=== PATIENT | male | born 1940 | race Caucasian/White ===

== ENCOUNTER 2017-06-22 02:32 | Inpatient (IN) | payer MEDICARE, OTHER ==
[~2017-06-22] VITALS: Ht 177.8 cm; Wt 70.0 kg
[2017-06-22] MEDS ORDERED: NITROGLYCERIN 2% 1 GM OINT PKT TD STA (02:39)
[2017-06-22] MEDS ORDERED: FUROSEMIDE 100 MG INJ IV STA (02:39)
[2017-06-22] MEDS ORDERED: ALBUTEROL 0.083% (NEB) 2.5 MG/3 ML AMP HHN ONE (02:59)
[2017-06-22] MEDS ORDERED: IPRATROPIUM (NEB) 0.5 MG/2.5 ML AMP HHN ONE (03:00)
--- NOTE | 2017-06-22 03:24 | RADRPT ---
PROCEDURE: XR Chest. CLINICAL INDICATION: Chest pain. TECHNIQUE: AP Portable chest. COMPARISON: No pertinent prior examinations were submitted for comparison. FINDINGS: Left subclavian AICD device is visualized. The patient is rotated. The cardiac silhouette is within normal limits. The aorta is calcified and tortuous. There are diffu se bilateral reticular densities and left perihilar opacification. No pneumothorax is seen. There is trace right pleural effusion or thickening.. The bones are demineralized. Old right rib fractures. IMPRESSION: Diffuse interstitial lung disease. Left perihilar infiltrate. Atherosclerotic aorta. AICD in place. Physician Pretty Date Time Electronically viewed and signed by Physician Pretty on 06/22/2017 03:23 /
[2017-06-22] MEDS ORDERED: CEFEPIME 1GM/50 ML (PMX) 50 ML IVPB ONE (03:43)
[2017-06-22] MEDS ORDERED: VANCOMYCIN 1 GM (PMX) 250 ML IVPB ONE (03:43)
[2017-06-22] MEDS ORDERED: TAMS0.4C2 PO (05:37)
[2017-06-22] MEDS ORDERED: HYDR25TA6 PO (05:37)
[2017-06-22] MEDS ORDERED: ATOR10TA65 PO (05:37)
[2017-06-22] MEDS ORDERED: CHOL100062 PO (05:37)
[2017-06-22] MEDS ORDERED: OMEP20CA16 PO (05:37)
[2017-06-22] MEDS ORDERED: OLAN2.5T28 PO (05:37)
--- NOTE | 2017-06-22 05:42 | ERD ---
ER Documentation Chief Complaint Chief Complaint SOB x 2 hours HPI This is a 77-year-old male here with complaints of shortness of breath. Brought in by rescue. Placed on CPAP. Given nitro spray. Initial saturations were in the 60s. Her saturations have improved upon arrival. Patient cannot provide any relevant history secondary current breathing status baseline mental status. History per EMS run sheet half-way transfer sheet ROS All systems reviewed and are negative except as per history of present illness. Medications Home Meds Reported Medications Cholecalciferol* (Vitamin D3*) 1,000 Unit Tablet, 1000 UNIT PO DAILY for 30 Days , TAB TAKE 1 TABLET BY MOUTH ONCE DAILY 06/22/17 Tamsulosin Hcl* (Tamsulosin Hcl*) 0.4 Mg Cap.er.24h, 0.4 MG PO DAILY, CAP TAKE 1 CAPSULE BY MOUTH ONCE DAILY 06/22/17 Omeprazole* (Omeprazole*) 20 Mg Capsule.dr, 20 MG PO DAILY, #30 CAP TAKE 1 CAPSULE BY MOUTH ONCE DAILY 06/22/17 Olanzapine* (Zyprexa*) 2.5 Mg Tablet, 2.5 MG PO DAILY, #30 TAB TAKE 1 TABLET BY MOUTH ATR BEDTIME 06/22/17 Hydrochlorothiazide* (Hydrochlorothiazide*) 25 Mg Tab, 25 MG PO QAM, #30 TAB TAKE 1 TABLET BY MOUTH IN THE MORNING 06/22/17 Atorvastatin Calcium (Atorvastatin Calcium) 10 Mg Tablet, 10 MG PO QHS for 30 Days, #30 TAB TAKE 1 TABLET BY MOUTH EVERY EVENING 06/22/17 Allergies Allergies: Coded Allergies: No Known Allergy (Unverified , 06/22/17) PMhx/Soc History of Surgery: No Anesthesia Reaction: No Hx Neurological Disorder: No Hx Respiratory Disorders: Yes (COPD) Hx Cardiac Disorders: Yes (AFib,CHF) Hx Psychiatric Problems: No Hx Miscellaneous Medical Probl: Yes Hx Alcohol Use: Yes (Formerly) Hx Substance Use: No Hx Tobacco Use: Yes (Formerly) Smoking Status: Former smoker Physical Exam Vitals Vital Signs Date Time Temp Pulse Resp B/P Pulse Ox O2 Delivery O2 Flow Rate FiO2 06/22/17 05:00 Simple Mask 10 06/22/17 04:10 78 99 100 06/22/17 02:42 86 99 100 06/22/17 02:40 98.0 87 26 198/171 91 Physical Exam Const: [] Head: Atraumatic Eyes: Normal Conjunctiva ENT: Normal External Ears, Nose and Mouth. Neck: Full range of motion..~ No meningismus. Resp: [place] rales in all lung finnegan Cardio: Regular rate and rhythm, no murmurs Abd: Soft, non tender, non distended. Normal bowel sounds Skin: No petechiae or rashes Back: No midline or flank tenderness Ext: No cyanosis, or edema Neur: Awake and alert Psych: Normal Mood and Affect Result Diagram: 06/22/1732406/22/17 032 Results 24 hrs Laboratory Tests Test 06/22/17 03:25 White Blood Count 13.210^3/ul Red Blood Count 3.7110^6/ul Hemoglobin 11.7g/dl Hematocrit 36.7% Mean Corpuscular Volume 98.9fl Mean Corpuscular Hemoglobin 31.5pg Mean Corpuscular Hemoglobin Concent 31.9g/dl Red Cell Distribution Width 14.2% Platelet Count 60685^3/UL Mean Platelet Volume 11.7fl Neutrophils % 78.5% Lymphocytes % 12.2% Monocytes % 8.2% Eosinophils % 0.1% Basophils % 0.6% Nucleated Red Blood Cells % 0.0/100WBC Neutrophils # 10.310^3/ul Lymphocytes # 1.610^3/ul Monocytes # 1.110^3/ul Eosinophils # 0.010^3/ul Basophils # 0.110^3/ul Nucleated Red Blood Cells # 0.010^3/ul Prothrombin Time 14.6Sec Prothrombin Time Ratio 1.1 INR International Normalized Ratio 1.14 Activated Partial Thromboplast Time 29.6Sec Sodium Level 143mmol/L Potassium Level 3.8mmol/L Chloride Level 96mmol/L Carbon Dioxide Level 35mmol/L Anion Gap 16 Blood Urea Nitrogen 17mg/dl Creatinine 1.05mg/dl Glucose Level 188mg/dl Calcium Level 8.5mg/dl Total Bilirubin 0.2mg/dl Direct Bilirubin 0.00mg/dl Indirect Bilirubin 0.2mg/dl Aspartate Amino Transf (AST/SGOT) 32IU/L Alanine Aminotransferase (ALT/SGPT) 27IU/L Alkaline Phosphatase 125IU/L Troponin I 0.054ng/ml B-Type Natriuretic Peptide 1710PG/ML Total Protein 7.5g/dl Albumin 4.0g/dl Globulin 3.50g/dl Albumin/Globulin Ratio 1.14 Current Medications Medications (Trade) Dose Ordered Sig/Yesenia Route PRN Reason Start Time Stop Time Status Last Admin Dose Admin Nitroglycerin (Nitroglycerin 2% Oint) 1 inch ONCE STAT TD 06/22/17 02:39 06/22/17 02:41 DC 06/22/17 03:21 Furosemide (Lasix) 80 mg ONCE STAT IV 06/22/17 02:39 06/22/17 02:41 DC 06/22/17 03:06 Albuterol (Proventil 0.083% (Neb)) 5 mg ONCE ONCE HHN 06/22/17 02:59 06/22/17 03:33 DC 06/22/17 03:14 Ipratropium [place] 0.5 mg 0.5 mg ONCE ONCE HHN 06/22/17 03:00 06/22/17 03:33 DC 06/22/17 03:13 Cefepime HCl 50 ml @ 100 mls/hr ONCE ONCE IVPB 06/22/17 03:43 06/22/17 04:12 DC 06/22/17 04:38 Vancomycin HCl (Vancocin) 250 ml @ 125 mls/hr ONCE ONCE IVPB 06/22/17 03:43 06/22/17 05:42 06/22/17 04:53 Procedures/MDM EKG: Rate/Rhythm: [Normal Sinus Rhythm] QRS, ST, T-waves: [No changes consistent w/ acute ischemia] Impression: [No evidence of ischemia or arrhythmia] Chest X-ray 1V Interpreted by me: Soft Tissue: No acute abnormalities Bones: No acute abnormalities Mediastinum/Cardiac Silhouette/Lungs: Mild perihilar infiltrate. Increased interstitial fluid working. Medical decision making: This very pleasant patient as well as possible pulmonary edema and possible pneumonia. Started antibiotics post cultures. Given Lasix and trial of BiPAP. Patient greatly improved. Patient will be admitted to Dr. Yang who is on-call for Dr. Patino Critical Care: Time: 45 minutes Treatments/Evaluations: Close monitoring and treatment of unstable vital signs, cardiorespiratory, and neurologic status, while maintaining tight balance of fluid, respiratory, and cardiac interventions. Departure Diagnosis: Primary Impression: Pulmonary edema Chronicity: acute Qualified Code: J81.0 - Acute pulmonary edema Additional Impression: Pneumonia Pneumonia type: due to unspecified organism Laterality: left Lung location : unspecified part of lung Qualified Code: J18.9 - Pneumonia of left lung due to infectious organism, unspecified part of lung Condition: Serious AYANNA COELHO Jun 22, 2017 05:42
[2017-06-22] MEDS ORDERED: ACET325T45 PO ×2 (05:44→06:10)
[2017-06-22] MEDS ORDERED: DOCU100C26 PO (05:44)
[2017-06-22] MEDS ORDERED: ATEN-51 PO (05:44)
[2017-06-22] MEDS ORDERED: AMLO5TAB4 PO (05:44)
[2017-06-22] MEDS ORDERED: CLON-379 PO (05:58)
[2017-06-22] MEDS ORDERED: NIT4 SL (05:58)
[2017-06-22] MEDS ORDERED: ASPI-664 PO (06:10)
[2017-06-22] MEDS ORDERED: UDMYL PO (06:10)
[2017-06-22] MEDS ORDERED: [UNRECOGNIZED DRUG - CODE] PO (06:10)
[2017-06-22] MEDS ORDERED: AMIO200T2 PO (06:10)
[2017-06-22] MEDS ORDERED: MULT-105 PO (06:10)
[2017-06-22] MEDS ORDERED: FOLI-49 PO (06:10)
[2017-06-22] MEDS ORDERED: LORA1TAB PO (06:10)
[2017-06-22] MEDS ORDERED: BENA40TA41 PO (06:13)
[2017-06-22] MEDS ORDERED: DIGO125T19 PO (06:13)
[2017-06-22] MEDS ORDERED: PANT40TA3 PO (06:13)
[2017-06-22] MEDS ORDERED: CARV25TA97 PO (06:19)
[2017-06-22] MEDS ORDERED: ALLO100T PO (06:19)
[2017-06-22] MEDS ORDERED: ALBU2.5V3 NEB (06:29)
[2017-06-22] MEDS ORDERED: FURO20TA3 PO (06:29)
[2017-06-22] MEDS ORDERED: GABA100C14 PO (06:29)
[2017-06-22] MEDS ORDERED: ACET12.5 PO (06:29)
[2017-06-22] MEDS ORDERED: APIX5TAB PO (06:29)
[2017-06-22] MEDS ORDERED: TYL2 PO (06:29)
[2017-06-22] MEDS ORDERED: FUROSEMIDE 40 MG INJ IV ONE (07:00)
[2017-06-22] MEDS ORDERED: ONDANSETRON 4 MG INJ IV PRN (07:00)
[2017-06-22] MEDS ORDERED: HYDROCODONE/APAP (5/325) TAB PO PRN (07:00)
[2017-06-22] MEDS ORDERED: ACETAMINOPHEN 325 MG TAB PO PRN ×2 (07:00→12:30)
[2017-06-22] MEDS ORDERED: NACL 0.9% 3 ML SYG IV SCH (07:00)
[2017-06-22] MEDS: ENOXAPARIN 40 MG/0.4 ML SYG SC SCH (09:04)
[2017-06-22] MEDS: FAMOTIDINE 20 MG INJ IV SCH ×2 (09:04→21:00)
[2017-06-22] MEDS: GABAPENTIN 100 MG CAP PO SCH ×5 (09:16→21:01)
[2017-06-22] MEDS ORDERED: CEFTRIAXONE 1 GM INJ IVPB SCH (10:00)
[2017-06-22] MEDS ORDERED: ASPIRIN 81 MG TAB PO ONE (10:00)
[2017-06-22] MEDS: AZITHROMYCIN 250 MG in SOD CHLORIDE 0.9% 250 ML IVPB SCH ×2 (10:40→10:57)
--- NOTE | 2017-06-22 11:57 | QN ---
Documentation Comment [id number] MARION CONNELL MD Jun 22, 2017 11:57
--- NOTE | 2017-06-22 11:57 | QN ---
Documentation Comment [id number] MARION CONNELL MD Jun 22, 2017 11:57
--- NOTE | 2017-06-22 11:57 | QN ---
Documentation Comment [id number] MARION CONNELL MD Jun 22, 2017 11:57
[2017-06-22] MEDS ORDERED: AL HYDROX/MG HYDROX/SIMETH 30 ML CUP PO PRN (12:30)
[2017-06-22] MEDS ORDERED: LORAZEPAM 1 MG TAB PO PRN (12:30)
[2017-06-22] MEDS ORDERED: NITROGLYCERIN (SL) 0.4 MG TAB SL PRN (12:30)
[2017-06-22] MEDS: ALBUTEROL 0.083% (NEB) 2.5 MG/3 ML AMP NEB SCH ×4 (13:00→21:17)
--- NOTE | 2017-06-22 13:50 | HP ---
DATE OF ADMISSION: 06/22/2017 HISTORY OF PRESENT ILLNESS: The patient with history of CAD, CKD, CHF, diet- controlled diabetes, history of pneumonia, history of alcohol abuse, history of pancreatitis, history of DVT, treated, history of AICD device placement, has history of systolic heart failure, history of poor social condition, is a [place] [facility] resident now, presented to this hospital [facility] the [facility] complaining of short of breath. The patient carries a diagnosis of hypertension , atrial fibrillation, COPD, history of GERD, history of alcohol abuse, history of cannabis abuse in the past. Patient presented with short of breath, was placed on CPAP, patient also received nitroglycerin spray. Blood pressure recorded as 198/171, hematocrit 36.7, WBC 13.2. The patient received nitroglycerin, Lasix, albuterol, Atrovent, cefepime and vancomycin in the ER. The patient had a chest x-ray done that shows diffuse interstitial lung disease with left perihilar infiltrate and is going to be admitted for further management. PAST MEDICAL HISTORY: As mentioned above. Briefly, hypertension, neuropathy, CAD, CKD Patient has CHF, systolic heart failure, AICD device placement, history of pancreatitis, history of DVT in the past, treated, history of cardiac arrhythmia, history of malfunctioning pacemaker wire. The patient also has a history of multiple hospitalizations at various hospitals. ALLERGY HISTORY: NEGATIVE. FAMILY HISTORY: Negative. SOCIAL HISTORY: Marijuana use. MEDICATION HISTORY: The patient is on: 1. Tylenol. 2. Albuterol. 3. Allopurinol. 4. Amiodarone. 5. Apixaban. 6. Aspirin. 7. Benazepril. 8. Coreg. 9. Clonidine. 10. Digoxin. 11. Folic acid. 12. Lasix. 13. Gabapentin. 14. Lorazepam. 15. Simethicone. 16. Multiple vitamin. 17. . 18. Nitroglycerine. 19. Protonix. REVIEW OF SYSTEMS: HEENT: Unremarkable. RESPIRATORY: Shortness of breath, cough. CARDIOVASCULAR: No chest pain, palpitation. ABDOMEN: Dyspepsia. EXTREMITIES: Unremarkable. CENTRAL NERVOUS SYSTEM: Unremarkable. PHYSICAL EXAMINATION: GENERAL: The patient is awake, alert, mildly short of breath. VITAL SIGNS: Pulse 76, blood pressure 120/66. HEAD: Atraumatic, normocephalic. Pupils are equal, reactive, no pallor or conjunctival icterus. NECK: Supple. LUNGS: Rhonchi and rales noted bilaterally. CARDIOVASCULAR: S1, S2 are normal. ABDOMEN: Soft, nontender. Bowel sounds present. No palpable mass. EXTREMITIES: No cyanosis, clubbing. Edema positive of the lower extremities. CENTRAL NERVOUS SYSTEM: The patient is awake, alert, no focal deficit. LABORATORY DATA: WBC 13.2, hematocrit 36.7, platelet count of 258. Sodium 142 , potassium 3.8. BNP 1710. IMPRESSION: 1. The patient has acute hypoxic respiratory failure. 2. Pulmonary edema. 3. Underlying pneumonia. 4. Interstitial lung disease. The patient is on Cordarone. 5. Other diagnoses include: The patient has leukocytosis, anemia, AICD device placement, history of malfunctioning pacemaker wire, history of DVT, history of pancreatitis, history of alcohol abuse. PLAN: At this point is to continue oxygen, bronchodilator, , cardiology consultations, diuretic will be given, 2D echo will be obtained. Orders were done. Dictated By: MARION GARLAND/ELBERT Conf#: [id number] DID#: [id number] MTDD
[2017-06-22 14:44] VITALS: TEMP 98.1
[2017-06-22 15:45] VITALS: Ht 177.8 cm; Wt 70.0 kg
[2017-06-22 15:58] VITALS: BP 152/85; RESP 17
[2017-06-22 16:06] VITALS: PULSE 71
[2017-06-22] MEDS: CEFTRIAXONE 1 GM/50 ML (PMX) 50 ML IVPB SCH (19:51)
[2017-06-22 20:07] VITALS: BP 169/78; RESP 17
--- NOTE | 2017-06-22 20:36 | RADRPT ---
Echocardiogram Report Patient Name: EZ AUSTIN Gender: Male Date: 1940 Study Date: 22-Jun-2017 Needle Straightener: Phong [facility] Location: [facility] Ref. Physician: MARION CONNELL Quality: Adequate Procedures: Transthoracic echocardiogram with complete 2D, M-Mode, and doppler examination. Indications: Congestive Heart Failure. 2D/M Mode Doppler Measurement Value Normal Ranges Measurement Value Normal Ranges LVIDd 2D 7.3 3.5 - 5.6 cm AV Peak Joseph 1.8 m/sec LVIDs 2D 6.1 2.1 - 4.1 cm AV Peak PG 12.0 mmHg FS 2D 16.6 % AI Peak PG 24.0 mmHg LVPWd 2D 1.1 0.6 - 1.1 cm AI Peak Joseph 2.4 m/sec IVSd 2D 1.2 0.6 - 1.1 cm AI PHT 548.0 msec IVS/LVPW 2D 1.1 LVOT Peak Joseph 0.8 m/sec AoR Diam 2D 2.6 2.0 - 3.7 cm LVOT Peak PG 2.0 mmHg LA/Ao 2D 2 0 - 1 MV E Peak Joseph 1.3 m/sec EDV 2D 387.0 cm3 MV Decel Time 127 msec ESV 2D 225.0 cm3 TR Peak Joseph 3.2 m/sec LA Dimen 2D 5.1 2.3 - 4.0 cm TR Peak PG 40.0 mmHg RVSP 48.0 mmHg Findings Left Ventricle: Left ventricular wall thickness upper limits of normal. Severe enlargement of left ventricle cavity. Moderate global left ventricular systolic dysfunction. Ejection fraction is visually estimated at 35 %. Tissue Doppler/Mitral Doppler indices are consistent with impaired relaxation (Stage I diastolic dysfunction). Right Ventricle: Normal right ventricular size. Normal right ventricular systolic function. Pacemaker right heart. Left Atrium: There is moderate enlargement of left atrium. Right Atrium: The right atrium is normal in size. Mitral Valve: Mild mitral leaflet calcification. Mild mitral annular calcification. Mild mitral valve regurgitation. Aortic Valve: Aortic valve not well visualized. Tricuspid Valve: Tricuspid valve not well visualized. Estimated peak PA systolic pressure 48 mmHg. There is mild tricuspid regurgitation. Pulmonic Valve: Pulmonic valve not well visualized. Pericardium: Normal pericardium with no significant pericardial effusion. Aorta: Normal aortic root. IVC: Dilated IVC with respiratory collapse consistent with elevated right atrial pressure. Conclusions 1.Tech difficult quality echo with very limited views. 2.Left ventricular wall thickness upper limits of normal. Severe enlargement of left ventricle cavity. Moderate global left ventricular systolic dysfunction. Ejection fraction is visually estimated at 35 %. Tissue Doppler/Mitral Doppler indices are consistent with impaired relaxation (Stage I diastolic dysfunction). 3.Normal right ventricular size. Normal right ventricular systolic function. Pacemaker right heart. 4.There is moderate enlargement of left atrium. 5.Mild mitral leaflet calcification. Mild mitral annular calcification. Mild mitral valve regurgitation. 6.Tricuspid valve not well visualized. Estimated peak PA systolic pressure 48 mmHg. There is mild tricuspid regurgitation. Electronically Signed By: John Longoria 22-Jun-2017 20:35:00 -0700 Patient Name: EZ AUSTIN Study Date: 22-Jun-2017 [id number]
--- NOTE | 2017-06-22 20:36 | RADRPT ---
Echocardiogram Report Patient Name: EZ AUSTIN Gender: Male Date: 1940 Study Date: 22-Jun-2017 Resource Program Teacher: Phong [facility] Location: [facility] Ref. Physician: MARION CONNELL Quality: Adequate Procedures: Transthoracic echocardiogram with complete 2D, M-Mode, and doppler examination. Indications: Congestive Heart Failure. 2D/M Mode Doppler Measurement Value Normal Ranges Measurement Value Normal Ranges LVIDd 2D 7.3 3.5 - 5.6 cm AV Peak Joseph 1.8 m/sec LVIDs 2D 6.1 2.1 - 4.1 cm AV Peak PG 12.0 mmHg FS 2D 16.6 % AI Peak PG 24.0 mmHg LVPWd 2D 1.1 0.6 - 1.1 cm AI Peak Joseph 2.4 m/sec IVSd 2D 1.2 0.6 - 1.1 cm AI PHT 548.0 msec IVS/LVPW 2D 1.1 LVOT Peak Joseph 0.8 m/sec AoR Diam 2D 2.6 2.0 - 3.7 cm LVOT Peak PG 2.0 mmHg LA/Ao 2D 2 0 - 1 MV E Peak Joseph 1.3 m/sec EDV 2D 387.0 cm3 MV Decel Time 127 msec ESV 2D 225.0 cm3 TR Peak Joseph 3.2 m/sec LA Dimen 2D 5.1 2.3 - 4.0 cm TR Peak PG 40.0 mmHg RVSP 48.0 mmHg Findings Left Ventricle: Left ventricular wall thickness upper limits of normal. Severe enlargement of left ventricle cavity. Moderate global left ventricular systolic dysfunction. Ejection fraction is visually estimated at 35 %. Tissue Doppler/Mitral Doppler indices are consistent with impaired relaxation (Stage I diastolic dysfunction). Right Ventricle: Normal right ventricular size. Normal right ventricular systolic function. Pacemaker right heart. Left Atrium: There is moderate enlargement of left atrium. Right Atrium: The right atrium is normal in size. Mitral Valve: Mild mitral leaflet calcification. Mild mitral annular calcification. Mild mitral valve regurgitation. Aortic Valve: Aortic valve not well visualized. Tricuspid Valve: Tricuspid valve not well visualized. Estimated peak PA systolic pressure 48 mmHg. There is mild tricuspid regurgitation. Pulmonic Valve: Pulmonic valve not well visualized. Pericardium: Normal pericardium with no significant pericardial effusion. Aorta: Normal aortic root. IVC: Dilated IVC with respiratory collapse consistent with elevated right atrial pressure. Conclusions 1.Tech difficult quality echo with very limited views. 2.Left ventricular wall thickness upper limits of normal. Severe enlargement of left ventricle cavity. Moderate global left ventricular systolic dysfunction. Ejection fraction is visually estimated at 35 %. Tissue Doppler/Mitral Doppler indices are consistent with impaired relaxation (Stage I diastolic dysfunction). 3.Normal right ventricular size. Normal right ventricular systolic function. Pacemaker right heart. 4.There is moderate enlargement of left atrium. 5.Mild mitral leaflet calcification. Mild mitral annular calcification. Mild mitral valve regurgitation. 6.Tricuspid valve not well visualized. Estimated peak PA systolic pressure 48 mmHg. There is mild tricuspid regurgitation. Electronically Signed By: John Longoria 22-Jun-2017 20:35:00 -0700 Patient Name: EZ AUSTIN Study Date: 22-Jun-2017 [id number]
--- NOTE | 2017-06-22 20:36 | RADRPT ---
Echocardiogram Report Patient Name: EZ AUSTIN Gender: Male Date: 1940 Study Date: 22-Jun-2017 Translator/Interpreter: Phong [facility] Location: [facility]13 Ref. Physician: MARION CONNELL Quality: Adequate Procedures: Transthoracic echocardiogram with complete 2D, M-Mode, and doppler examination. Indications: Congestive Heart Failure. 2D/M Mode Doppler Measurement Value Normal Ranges Measurement Value Normal Ranges LVIDd 2D 7.3 3.5 - 5.6 cm AV Peak Joseph 1.8 m/sec LVIDs 2D 6.1 2.1 - 4.1 cm AV Peak PG 12.0 mmHg FS 2D 16.6 % AI Peak PG 24.0 mmHg LVPWd 2D 1.1 0.6 - 1.1 cm AI Peak Joseph 2.4 m/sec IVSd 2D 1.2 0.6 - 1.1 cm AI PHT 548.0 msec IVS/LVPW 2D 1.1 LVOT Peak Joseph 0.8 m/sec AoR Diam 2D 2.6 2.0 - 3.7 cm LVOT Peak PG 2.0 mmHg LA/Ao 2D 2 0 - 1 MV E Peak Joseph 1.3 m/sec EDV 2D 387.0 cm3 MV Decel Time 127 msec ESV 2D 225.0 cm3 TR Peak Joseph 3.2 m/sec LA Dimen 2D 5.1 2.3 - 4.0 cm TR Peak PG 40.0 mmHg RVSP 48.0 mmHg Findings Left Ventricle: Left ventricular wall thickness upper limits of normal. Severe enlargement of left ventricle cavity. Moderate global left ventricular systolic dysfunction. Ejection fraction is visually estimated at 35 %. Tissue Doppler/Mitral Doppler indices are consistent with impaired relaxation (Stage I diastolic dysfunction). Right Ventricle: Normal right ventricular size. Normal right ventricular systolic function. Pacemaker right heart. Left Atrium: There is moderate enlargement of left atrium. Right Atrium: The right atrium is normal in size. Mitral Valve: Mild mitral leaflet calcification. Mild mitral annular calcification. Mild mitral valve regurgitation. Aortic Valve: Aortic valve not well visualized. Tricuspid Valve: Tricuspid valve not well visualized. Estimated peak PA systolic pressure 48 mmHg. There is mild tricuspid regurgitation. Pulmonic Valve: Pulmonic valve not well visualized. Pericardium: Normal pericardium with no significant pericardial effusion. Aorta: Normal aortic root. IVC: Dilated IVC with respiratory collapse consistent with elevated right atrial pressure. Conclusions 1.Tech difficult quality echo with very limited views. 2.Left ventricular wall thickness upper limits of normal. Severe enlargement of left ventricle cavity. Moderate global left ventricular systolic dysfunction. Ejection fraction is visually estimated at 35 %. Tissue Doppler/Mitral Doppler indices are consistent with impaired relaxation (Stage I diastolic dysfunction). 3.Normal right ventricular size. Normal right ventricular systolic function. Pacemaker right heart. 4.There is moderate enlargement of left atrium. 5.Mild mitral leaflet calcification. Mild mitral annular calcification. Mild mitral valve regurgitation. 6.Tricuspid valve not well visualized. Estimated peak PA systolic pressure 48 mmHg. There is mild tricuspid regurgitation. Electronically Signed By: John Longoria 22-Jun-2017 20:35:00 -0700 Patient Name: EZ AUSTIN Study Date: 22-Jun-2017 [id number]
--- NOTE | 2017-06-22 20:40 | CONS ---
Date/Time of Note Date/Time of Note DATE: 06/22/17 TIME: 20:32 Assessment/Plan Assessment/Plan Chief Complaint/Hosp Course CHF exacerbation LBBB Hx of CMP Hx of EtOH use HTN SOB The LV lead is malfunctioning Will have [facility] check the device again The pt is scheduled for the LV lead replacement as outpt Will give IV lasix and will cont the meds and follow up He is in a atrial paced rhythm now. 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 The pt will be scheduled fro the LV lead replacement soon. sob and chf exacerbation Respiratory: shortness of breath Cardiovascular: edema Past Medical History see HPI Social History Smoking Status: Former smoker Exam/Review of Systems Vital Signs Vitals Vital Signs Date Time Temp Pulse Resp B/P Pulse Ox O2 Delivery O2 Flow Rate FiO2 06/22/17 20:12 Nasal Cannula 2.0 06/22/17 20:07 98.9 66 17 169/78 91 06/22/17 04:10 100 Intake and Output 06/21/17 06/21/17 06/22/17 15:00 23:00 07:00 Intake Total 150 ml Output Total 500 ml Balance -350 ml Exam Constitutional: alert, oriented, well developed Psych: no complaints Neck: supple Respiratory: diminished breath sounds Cardiovascular: gallop, jugular venous distention (JVD) Gastrointestinal: soft Results Result Diagram: 06/22/17 0325 06/22/17 0325 Results 24 hrs Laboratory Tests Test 06/22/17 03:25 White Blood Count 13.2 H Red Blood Count 3.71 L Hemoglobin 11.7 L Hematocrit 36.7 L Mean Corpuscular Volume 98.9 Mean Corpuscular Hemoglobin 31.5 Mean Corpuscular Hemoglobin Concent 31.9 L Red Cell Distribution Width 14.2 Platelet Count 258 Mean Platelet Volume 11.7 H Neutrophils % 78.5 H Lymphocytes % 12.2 L Monocytes % 8.2 Eosinophils % 0.1 Basophils % 0.6 Nucleated Red Blood Cells % 0.0 Neutrophils # 10.3 H Lymphocytes # 1.6 Monocytes # 1.1 H Eosinophils # 0.0 Basophils # 0.1 Nucleated Red Blood Cells # 0.0 Prothrombin Time 14.6 H Prothrombin Time Ratio 1.1 INR International Normalized Ratio 1.14 Activated Partial Thromboplast Time 29.6 Sodium Level 143 Potassium Level 3.8 Chloride Level 96 L Carbon Dioxide Level 35 H Anion Gap 16 Blood Urea Nitrogen 17 Creatinine 1.05 Glucose Level 188 Calcium Level 8.5 Total Bilirubin 0.2 Direct Bilirubin 0.00 Indirect Bilirubin 0.2 Aspartate Amino Transf (AST/SGOT) 32 Alanine Aminotransferase (ALT/SGPT) 27 Alkaline Phosphatase 125 H Troponin I 0.054 B-Type Natriuretic Peptide 1710 H Total Protein 7.5 Albumin 4.0 Globulin 3.50 H Albumin/Globulin Ratio 1.14 Medications Medications Current Medications Ondansetron HCl (Zofran Inj) 4 mg Q6H PRN IV NAUSEA AND/OR VOMITING; Start 06/22/17 at 07:00 Acetaminophen (Tylenol Tab) 650 mg Q6H PRN PO PAIN LEVEL 1-3 OR FEVER; Start 06/22/17 at 07:00 Acetaminophen/ Hydrocodone Bitart ([place] (5/325)) 1 tab Q6H PRN PO MODERATE PAIN LEVEL 4-6; Start 06/22/17 at 07:00 Morphine Sulfate (morphine) 2 mg Q4H PRN IV SEVERE PAIN LEVEL 7-10; Start 06/22 at 07:00 Docusate Sodium (Colace) 100 mg Q12H PRN PO CONSTIPATION; Start 06/22/17 at 07: 00 Famotidine (Pepcid Iv) 20 mg Q12 IV Last administered on 06/22/17 09:04; Admin Dose 20 MG; Start 06/22/17 at 09:00 Enoxaparin Sodium (Lovenox) 40 mg DAILY SC Last administered on 06/22/17 09:04 ; Admin Dose 40 MG; Start 06/22/17 at 09:00 Gabapentin 200 mg 200 mg TID PO Last administered on 06/22/17 09:16; Admin Dose 200 MG; Start 06/22/17 at 09:00 Ceftriaxone Sodium (Rocephin) 50 ml @ 100 mls/hr Q24H IVPB Last administered on 06/22/17 19:51; Admin Dose 100 MLS/HR; Start 06/22/17 at 12:00 Furosemide (Lasix) 40 mg DAILY IV ; Start 06/23/17 at 09:00 Acetaminophen (Tylenol Tab) 325 mg Q4H PRN PO PAIN AND OR ELEVATED TEMP; Start 06/22/17 at 12:30 Allopurinol (Zyloprim) 100 mg BID PO ; Start 06/22/17 at 21:00 Amiodarone HCl (Cordarone) 200 mg DAILY PO ; Start 06/23/17 at 09:00 Apixaban (Eliquis) 5 mg BID PO ; Start 06/22/17 at 21:00 Aspirin (Halfprin) 81 mg DAILY PO ; Start 06/23/17 at 09:00 Benazepril HCl (Lotensin) 40 mg DAILY PO ; Start 06/23/17 at 09:00 Carvedilol (Coreg) 25 mg BID PO ; Start 06/22/17 at 21:00 Clonidine (Catapres) 0.1 mg Q6 PO Last administered on 06/22/17t 18:24; Admin Dose 0.1 MG; Start 06/22/17 at 18:00 Digoxin (Digoxin) 0.125 mg DAILY PO ; Start 06/23/17 at 09:00 Folic Acid (Folic Acid) 1 mg DAILY PO ; Start 06/23/17 at 09:00 Gabapentin (Neurontin) 200 mg TID PO ; Start 06/22/17 at 13:00 Lorazepam (Ativan) 1 mg HS PRN PO ANXIETY; Start 06/22/17 at 12:30 Niacinamide 500 mg DAILY PO ; Start 06/23/17 at 09:00 Nitroglycerin (Nitroglycerin (Sl Tab) 0.4 Mg) 1 tab [id number] PRN SL CHEST PAIN ; Start 06/22/17 at 12:30 PRECIOUS CHOI MD Jun 22, 2017 20:40
[2017-06-22 20:51] VITALS: PULSE 76
[2017-06-22 20:52] VITALS: PULSE 98
[2017-06-22] MEDS: APIXABAN 5 MG TABLET PO SCH (21:00)
[2017-06-22] MEDS: ALLOPURINOL 100 MG TAB PO SCH (21:01)
[2017-06-22] MEDS: morphine 2 MG INJ IV PRN (21:02)
[2017-06-23] VITALS (11 sets, daily range): BP systolic 122–162; BP diastolic 59–76; PULSE 60–63; RESP 16–20
[2017-06-23] MEDS: PANTOPRAZOLE (EC) 40 MG TAB PO SCH (07:12)
[2017-06-23] MEDS ORDERED: POTASSIUM CHLORIDE (SR) 20 MEQ TAB PO STA ×2 (07:17→20:04)
[2017-06-23] MEDS: ALBUTEROL 0.083% (NEB) 2.5 MG/3 ML AMP NEB SCH ×4 (09:24→20:42)
[2017-06-23] MEDS: FOLIC ACID 1 MG TAB PO SCH (09:45)
[2017-06-23] MEDS: AMIODARONE 200 MG TAB PO SCH (09:45)
[2017-06-23] MEDS: NIACINAMIDE 500 MG PO SCH (09:45)
[2017-06-23] MEDS: ASPIRIN (EC) 81 MG TAB PO SCH (09:46)
[2017-06-23] MEDS: BENAZEPRIL 40 MG TAB PO SCH (09:46)
[2017-06-23] MEDS: DIGOXIN 0.125 MG TAB PO SCH (09:46)
[2017-06-23] MEDS: ALLOPURINOL 100 MG TAB PO SCH ×2 (09:47→21:10)
[2017-06-23] MEDS: APIXABAN 5 MG TABLET PO SCH ×2 (09:47→21:22)
[2017-06-23] MEDS: FAMOTIDINE 20 MG INJ IV SCH (09:48)
[2017-06-23] MEDS: GABAPENTIN 100 MG CAP PO SCH ×3 (09:48→21:11)
[2017-06-23] MEDS: FUROSEMIDE 40 MG INJ IV SCH (09:48)
[2017-06-23] MEDS: ENOXAPARIN 40 MG/0.4 ML SYG SC SCH (09:52)
[2017-06-23] MEDS: CEFTRIAXONE 1 GM/50 ML (PMX) 50 ML IVPB SCH (12:11)
--- NOTE | 2017-06-23 18:44 | PN ---
Date/Time of Note Date/Time of Note DATE: 06/23/17 TIME: 18:42 Assessment/Plan VTE Prophylaxis VTE Prophylaxis Intervention: other Lines/Catheters IV [facility] Saline [facility] Urinary Cath still in place: No Assessment/Plan Chief Complaint/Hosp Course IMPRESSION: 1. The patient has acute hypoxic respiratory failure. 2. Pulmonary edema. 3. Underlying pneumonia. 4. Interstitial lung disease. The patient is on Cordarone. 5. Other diagnoses include: The patient has leukocytosis, anemia, AICD device placement, history of malfunctioning pacemaker wire, history of DVT, history of pancreatitis, history of alcohol abuse. 6 hypokalemia plan antibiotic lasix kcl Problems: Subjective 24 Hr Interval Summary Subjective hx not possible: other (cardiology note seen,sob better) Exam/Review of Systems Vital Signs Vitals Vital Signs Date Time Temp Pulse Resp B/P Pulse Ox O2 Delivery O2 Flow Rate FiO2 06/23/17 16:37 60 06/23/17 15:23 98.1 17 138/67 98 06/23/17 14:09 Nasal Cannula 2.0 06/23/17 01:27 31 Intake and Output 06/22/17 06/22/17 06/23/17 15:00 23:00 07:00 Intake Total 50 ml 500 ml Output Total 1300 ml 700 ml 800 ml Balance -1300 ml -650 ml -300 ml Exam Neck: supple Respiratory: diminished breath sounds Cardiovascular: regular rate and rhythm Gastrointestinal: bowel sounds (+), soft Musculoskeletal: nl extremities to inspection Extremities: edema (+) Results Result Diagram: 06/23/17 0450 06/23/17 0450 Results 24 hrs Laboratory Tests Test 06/23/17 04:50 White Blood Count 9.7 # Red Blood Count 3.15 L Hemoglobin 9.7 L Hematocrit 30.7 L Mean Corpuscular Volume 97.5 Mean Corpuscular Hemoglobin 30.8 Mean Corpuscular Hemoglobin Concent 31.6 L Red Cell Distribution Width 14.2 Platelet Count 219 Mean Platelet Volume 11.3 H Neutrophils % 66.8 Lymphocytes % 20.1 Monocytes % 12.0 H Eosinophils % 0.0 Basophils % 0.6 Nucleated Red Blood Cells % 0.0 Neutrophils # 6.5 Lymphocytes # 2.0 Monocytes # 1.2 H Eosinophils # 0.0 Basophils # 0.1 Nucleated Red Blood Cells # 0.0 Sodium Level 142 Potassium Level 2.8 *L Chloride Level 94 L Carbon Dioxide Level 39 H Anion Gap 12 Blood Urea Nitrogen 16 Creatinine 0.80 Glucose Level 82 # Calcium Level 8.1 L Total Bilirubin 0.3 Direct Bilirubin 0.00 Indirect Bilirubin 0.3 Aspartate Amino Transf (AST/SGOT) 22 Alanine Aminotransferase (ALT/SGPT) 26 Alkaline Phosphatase 79 Total Protein 6.4 # Albumin 3.2 L Globulin 3.20 Albumin/Globulin Ratio 1.00 Medications Medications Current Medications Ondansetron HCl (Zofran Inj) 4 mg Q6H PRN IV NAUSEA AND/OR VOMITING; Start 06/22/17 at 07:00 Acetaminophen (Tylenol Tab) 650 mg Q6H PRN PO PAIN LEVEL 1-3 OR FEVER; Start 06/22/17 at 07:00 Acetaminophen/ Hydrocodone Bitart ([place] (5/325)) 1 tab Q6H PRN PO MODERATE PAIN LEVEL 4-6; Start 06/22/17 at 07:00 Morphine Sulfate (morphine) 2 mg Q4H PRN IV SEVERE PAIN LEVEL 7-10 Last administered on 06/22/17 21:02; Admin Dose 2 MG; Start 06/22/17 at 07:00 Docusate Sodium (Colace) 100 mg Q12H PRN PO CONSTIPATION; Start 06/22/17 at 07: 00 Enoxaparin Sodium (Lovenox) 40 mg DAILY SC Last administered on 06/23/17 09:52 ; Admin Dose 40 MG; Start 06/22/17 at 09:00 Gabapentin 200 mg 200 mg TID PO Last administered on 06/23/17 14:06; Admin Dose 200 MG; Start 06/22/17 at 09:00 Ceftriaxone Sodium (Rocephin) 50 ml @ 100 mls/hr Q24H IVPB Last administered on 06/23/17 12:11; Admin Dose 100 MLS/HR; Start 06/22/17 at 12:00 Furosemide (Lasix) 40 mg DAILY IV Last administered on 06/23/17 09:48; Admin Dose 40 MG; Start 06/23/17 at 09:00 Acetaminophen (Tylenol Tab) 325 mg Q4H PRN PO PAIN AND OR ELEVATED TEMP; Start 06/22/17 at 12:30 Allopurinol (Zyloprim) 100 mg BID PO Last administered on 06/23/17 09:47; Admin Dose 100 MG; Start 06/22/17 at 21:00 Amiodarone HCl (Cordarone) 200 mg DAILY PO Last administered on 06/23/17 09:45 ; Admin Dose 200 MG; Start 06/23/17 at 09:00 Apixaban (Eliquis) 5 mg BID PO Last administered on 06/23/17 09:47; Admin Dose 5 MG; Start 06/22/17 at 21:00 Aspirin (Halfprin) 81 mg DAILY PO Last administered on 06/23/17 09:46; Admin Dose 81 MG; Start 06/23/17 at 09:00 Benazepril HCl (Lotensin) 40 mg DAILY PO Last administered on 06/23/17 09:46; Admin Dose 40 MG; Start 06/23/17 at 09:00 Carvedilol (Coreg) 25 mg BID PO Last administered on 06/23/17 09:46; Admin Dose 25 MG; Start 06/22/17 at 21:00 Clonidine (Catapres) 0.1 mg Q6 PO Last administered on 06/23/17 12:14; Admin Dose 0.1 MG; Start 06/22/17 at 18:00 Digoxin (Digoxin) 0.125 mg DAILY PO Last administered on 06/23/17 09:46; Admin Dose 0.125 MG; Start 06/23/17 at 09:00 Folic Acid (Folic Acid) 1 mg DAILY PO Last administered on 06/23/17 09:45; Admin Dose 1 MG; Start 06/23/17 at 09:00 Lorazepam (Ativan) 1 mg HS PRN PO ANXIETY; Start 06/22/17 at 12:30 Niacinamide 500 mg DAILY PO Last administered on 06/23/17 09:45; Admin Dose 500 MG; Start 06/23/17 at 09:00 Nitroglycerin (Nitroglycerin (Sl Tab) 0.4 Mg) 1 tab [id number] PRN SL CHEST PAIN ; Start 06/22/17 at 12:30 Famotidine (Pepcid) 20 mg Q12 PO ; Start 06/23/17 at 21:00 MARION CONNELL MD Jun 23, 2017 18:44
--- NOTE | 2017-06-23 20:07 | CONS ---
Date/Time of Note Date/Time of Note DATE: 06/23/17 TIME: 20:06 Assessment/Plan Assessment/Plan Chief Complaint/Hosp Course CHF exacerbation LBBB Hx of CMP Hx of EtOH use HTN SOB The LV lead is malfunctioning Will have [facility] check the device again The pt is scheduled for the LV lead replacement as outpt Will give IV lasix and will cont the meds and follow up He is in a atrial paced rhythm now. 06/23/2017 the pt is seen and examined he is feeling much better he is constipated, and he received laxatives, but still has not used the toilet. Will need fleet enema Problems: Additional Assessment/Plan see above Consultation Date/Type/Reason Admit Date/Time Jun 22, 2017 at 05:30 Initial Consult Date yesterday Referring Provider: MARION CONNELL MD 24 HR Interval Summary Free Text/Dictation The pt is feeling much better Exam/Review of Systems Vital Signs Vitals Vital Signs Date Time Temp Pulse Resp B/P Pulse Ox O2 Delivery O2 Flow Rate FiO2 06/23/17 16:37 60 06/23/17 15:23 98.1 17 138/67 98 06/23/17 14:09 Nasal Cannula 2.0 06/23/17 01:27 31 Intake and Output 06/22/17 06/22/17 06/23/17 15:00 23:00 07:00 Intake Total 50 ml 500 ml Output Total 1300 ml 700 ml 800 ml Balance -1300 ml -650 ml -300 ml Results Result Diagram: 06/23/17 0450 06/23/17 0450 Results 24 hrs Laboratory Tests Test 06/23/17 04:50 White Blood Count 9.7 # Red Blood Count 3.15 L Hemoglobin 9.7 L Hematocrit 30.7 L Mean Corpuscular Volume 97.5 Mean Corpuscular Hemoglobin 30.8 Mean Corpuscular Hemoglobin Concent 31.6 L Red Cell Distribution Width 14.2 Platelet Count 219 Mean Platelet Volume 11.3 H Neutrophils % 66.8 Lymphocytes % 20.1 Monocytes % 12.0 H Eosinophils % 0.0 Basophils % 0.6 Nucleated Red Blood Cells % 0.0 Neutrophils # 6.5 Lymphocytes # 2.0 Monocytes # 1.2 H Eosinophils # 0.0 Basophils # 0.1 Nucleated Red Blood Cells # 0.0 Sodium Level 142 Potassium Level 2.8 *L Chloride Level 94 L Carbon Dioxide Level 39 H Anion Gap 12 Blood Urea Nitrogen 16 Creatinine 0.80 Glucose Level 82 # Calcium Level 8.1 L Total Bilirubin 0.3 Direct Bilirubin 0.00 Indirect Bilirubin 0.3 Aspartate Amino Transf (AST/SGOT) 22 Alanine Aminotransferase (ALT/SGPT) 26 Alkaline Phosphatase 79 Total Protein 6.4 # Albumin 3.2 L Globulin 3.20 Albumin/Globulin Ratio 1.00 Medications Medications Current Medications Ondansetron HCl (Zofran Inj) 4 mg Q6H PRN IV NAUSEA AND/OR VOMITING; Start 06/22/17 at 07:00 Acetaminophen (Tylenol Tab) 650 mg Q6H PRN PO PAIN LEVEL 1-3 OR FEVER; Start 06/22/17 at 07:00 Acetaminophen/ Hydrocodone Bitart ([place] (5/325)) 1 tab Q6H PRN PO MODERATE PAIN LEVEL 4-6; Start 06/22/17 at 07:00 Morphine Sulfate (morphine) 2 mg Q4H PRN IV SEVERE PAIN LEVEL 7-10 Last administered on 06/22/17 21:02; Admin Dose 2 MG; Start 06/22/17 at 07:00 Docusate Sodium (Colace) 100 mg Q12H PRN PO CONSTIPATION; Start 06/22/17 at 07: 00 Enoxaparin Sodium (Lovenox) 40 mg DAILY SC Last administered on 06/23/17 09:52 ; Admin Dose 40 MG; Start 06/22/17 at 09:00 Gabapentin 200 mg 200 mg TID PO Last administered on 06/23/17 14:06; Admin Dose 200 MG; Start 06/22/17 at 09:00 Ceftriaxone Sodium (Rocephin) 50 ml @ 100 mls/hr Q24H IVPB Last administered on 06/23/17 12:11; Admin Dose 100 MLS/HR; Start 06/22/17 at 12:00 Furosemide (Lasix) 40 mg DAILY IV Last administered on 06/23/17 09:48; Admin Dose 40 MG; Start 06/23/17 at 09:00 Acetaminophen (Tylenol Tab) 325 mg Q4H PRN PO PAIN AND OR ELEVATED TEMP; Start 06/22/17 at 12:30 Allopurinol (Zyloprim) 100 mg BID PO Last administered on 06/23/17 09:47; Admin Dose 100 MG; Start 06/22/17 at 21:00 Amiodarone HCl (Cordarone) 200 mg DAILY PO Last administered on 06/23/17 09:45 ; Admin Dose 200 MG; Start 06/23/17 at 09:00 Apixaban (Eliquis) 5 mg BID PO Last administered on 06/23/17 09:47; Admin Dose 5 MG; Start 06/22/17 at 21:00 Aspirin (Halfprin) 81 mg DAILY PO Last administered on 06/23/17 09:46; Admin Dose 81 MG; Start 06/23/17 at 09:00 Benazepril HCl (Lotensin) 40 mg DAILY PO Last administered on 06/23/17 09:46; Admin Dose 40 MG; Start 06/23/17 at 09:00 Carvedilol (Coreg) 25 mg BID PO Last administered on 06/23/17 09:46; Admin Dose 25 MG; Start 06/22/17 at 21:00 Clonidine (Catapres) 0.1 mg Q6 PO Last administered on 06/23/17 18:00; Admin Dose 0.1 MG; Start 06/22/17 at 18:00 Digoxin (Digoxin) 0.125 mg DAILY PO Last administered on 06/23/17 09:46; Admin Dose 0.125 MG; Start 06/23/17 at 09:00 Folic Acid (Folic Acid) 1 mg DAILY PO Last administered on 06/23/17 09:45; Admin Dose 1 MG; Start 06/23/17 at 09:00 Lorazepam (Ativan) 1 mg HS PRN PO ANXIETY; Start 06/22/17 at 12:30 Niacinamide 500 mg DAILY PO Last administered on 06/23/17 09:45; Admin Dose 500 MG; Start 06/23/17 at 09:00 Nitroglycerin (Nitroglycerin (Sl Tab) 0.4 Mg) 1 tab [id number] PRN SL CHEST PAIN ; Start 06/22/17 at 12:30 Famotidine (Pepcid) 20 mg Q12 PO ; Start 06/23/17 at 21:00 PRECIOUS CHOI MD Jun 23, 2017 20:07
[2017-06-23] MEDS: FAMOTIDINE 20 MG TAB PO SCH (21:23)
[2017-06-24] VITALS (13 sets, daily range): BP systolic 137–161; BP diastolic 63–78; PULSE 59–60; RESP 16–22
[2017-06-24] MEDS: PANTOPRAZOLE (EC) 40 MG TAB PO SCH (06:06)
[2017-06-24] MEDS: DOCUSATE SODIUM 100 MG CAP PO PRN (06:09)
[2017-06-24] MEDS: ALBUTEROL 0.083% (NEB) 2.5 MG/3 ML AMP NEB SCH ×4 (07:54→20:58)
[2017-06-24] MEDS: ASPIRIN (EC) 81 MG TAB PO SCH (09:41)
[2017-06-24] MEDS: FOLIC ACID 1 MG TAB PO SCH (09:41)
[2017-06-24] MEDS: BENAZEPRIL 40 MG TAB PO SCH (09:42)
[2017-06-24] MEDS: AMIODARONE 200 MG TAB PO SCH (09:42)
[2017-06-24] MEDS: GABAPENTIN 100 MG CAP PO SCH ×3 (09:42→21:26)
[2017-06-24] MEDS: DIGOXIN 0.125 MG TAB PO SCH (09:43)
[2017-06-24] MEDS: ALLOPURINOL 100 MG TAB PO SCH ×2 (09:43→21:26)
[2017-06-24] MEDS: FAMOTIDINE 20 MG TAB PO SCH ×2 (09:43→21:26)
[2017-06-24] MEDS: APIXABAN 5 MG TABLET PO SCH ×2 (09:43→21:25)
[2017-06-24] MEDS: NIACINAMIDE 500 MG PO SCH (09:44)
[2017-06-24] MEDS: ENOXAPARIN 40 MG/0.4 ML SYG SC SCH (10:07)
[2017-06-24] MEDS: POTASSIUM CHLORIDE (SR) 20 MEQ TAB PO SCH (14:20)
[2017-06-24] MEDS: CEFTRIAXONE 1 GM/50 ML (PMX) 50 ML IVPB SCH (14:20)
[2017-06-24] MEDS: FUROSEMIDE 40 MG INJ IV SCH (14:20)
--- NOTE | 2017-06-24 16:47 | PN ---
Date/Time of Note Date/Time of Note DATE: 06/24/17 TIME: 16:46 Assessment/Plan VTE Prophylaxis VTE Prophylaxis Intervention: other Lines/Catheters [facility] Sal[facility] Lock Urinary Cath still in place: No Assessment/Plan Chief Complaint/Hosp Course IMPRESSION: 1. The patient has acute hypoxic respiratory failure. 2. Pulmonary edema. 3. Underlying pneumonia. 4. Interstitial lung disease. The patient is on Cordarone. 5. Other diagnoses include: The patient has leukocytosis, anemia, AICD device placement, history of malfunctioning pacemaker wire, history of DVT, history of pancreatitis, history of alcohol abuse. 6 hypokalemia plan antibiotic lasix kcl per cardio Problems: Subjective 24 Hr Interval Summary Respiratory: shortness of breath (better) Exam/Review of Systems Vital Signs Vitals Vital Signs Date Time Temp Pulse Resp B/P Pulse Ox O2 Delivery O2 Flow Rate FiO2 06/24/17 16:04 68 22 95 Nasal Cannula 2.0 06/24/17 16:02 98.0 137/75 06/24/17 02:56 27 Intake and Output 06/23/17 06/23/17 06/24/17 15:00 23:00 07:00 Intake Total 50 ml 600 ml Output Total 850 ml Balance 50 ml -250 ml Exam Cardiovascular: regular rate and rhythm Gastrointestinal: soft Musculoskeletal: nl extremities to inspection Extremities: normal pulses Results Result Diagram: 06/23/17 0450 06/24/17 0926 Results 24 hrs Laboratory Tests Test 06/24/17 09:26 Sodium Level 141 Potassium Level 3.3 L Chloride Level 95 L Carbon Dioxide Level 37 H Anion Gap 12 Blood Urea Nitrogen 14 Creatinine 0.82 Glucose Level 147 # Calcium Level 8.4 Total Bilirubin 0.3 Direct Bilirubin 0.00 Indirect Bilirubin 0.3 Aspartate Amino Transf (AST/SGOT) 26 Alanine Aminotransferase (ALT/SGPT) 25 Alkaline Phosphatase 80 Total Protein 6.9 Albumin 3.4 Globulin 3.50 H Albumin/Globulin Ratio 0.97 Medications Medications Current Medications Ondansetron HCl (Zofran Inj) 4 mg Q6H PRN IV NAUSEA AND/OR VOMITING; Start 06/22/17 at 07:00 Acetaminophen (Tylenol Tab) 650 mg Q6H PRN PO PAIN LEVEL 1-3 OR FEVER; Start 06/22/17 at 07:00 Acetaminophen/ Hydrocodone Bitart ([place] (5/325)) 1 tab Q6H PRN PO MODERATE PAIN LEVEL 4-6; Start 06/22/17 at 07:00 Morphine Sulfate (morphine) 2 mg Q4H PRN IV SEVERE PAIN LEVEL 7-10 Last administered on 06/22/17 21:02; Admin Dose 2 MG; Start 06/22/17 at 07:00 Docusate Sodium (Colace) 100 mg Q12H PRN PO CONSTIPATION Last administered on 06/24/17 06:09; Admin Dose 100 MG; Start 06/22/17 at 07:00 Enoxaparin Sodium (Lovenox) 40 mg DAILY SC Last administered on 06/24/17 10:07 ; Admin Dose 40 MG; Start 06/22/17 at 09:00 Gabapentin 200 mg 200 mg TID PO Last administered on 06/24/17 14:21; Admin Dose 200 MG; Start 06/22/17 at 09:00 Ceftriaxone Sodium (Rocephin) 50 ml @ 100 mls/hr Q24H IVPB Last administered on 06/24/17 14:20; Admin Dose 100 MLS/HR; Start 06/22/17 at 12:00 Furosemide (Lasix) 40 mg DAILY IV Last administered on 06/24/17 14:20; Admin Dose 40 MG; Start 06/23/17 at 09:00 Acetaminophen (Tylenol Tab) 325 mg Q4H PRN PO PAIN AND OR ELEVATED TEMP; Start 06/22/17 at 12:30 Allopurinol (Zyloprim) 100 mg BID PO Last administered on 06/24/17 09:43; Admin Dose 100 MG; Start 06/22/17 at 21:00 Amiodarone HCl (Cordarone) 200 mg DAILY PO Last administered on 06/24/17 09:42 ; Admin Dose 200 MG; Start 06/23/17 at 09:00 Apixaban (Eliquis) 5 mg BID PO Last administered on 06/24/17 09:43; Admin Dose 5 MG; Start 06/22/17 at 21:00 Aspirin (Halfprin) 81 mg DAILY PO Last administered on 06/24/17 09:41; Admin Dose 81 MG; Start 06/23/17 at 09:00 Benazepril HCl (Lotensin) 40 mg DAILY PO Last administered on 06/24/17 09:42; Admin Dose 40 MG; Start 06/23/17 at 09:00 Carvedilol (Coreg) 25 mg BID PO Last administered on 06/24/17 09:41; Admin Dose 25 MG; Start 06/22/17 at 21:00 Clonidine (Catapres) 0.1 mg Q6 PO Last administered on 06/24/17 14:20; Admin Dose 0.1 MG; Start 06/22/17 at 18:00 Digoxin (Digoxin) 0.125 mg DAILY PO Last administered on 06/24/17 09:43; Admin Dose 0.125 MG; Start 06/23/17 at 09:00 Folic Acid (Folic Acid) 1 mg DAILY PO Last administered on 06/24/17 09:41; Admin Dose 1 MG; Start 06/23/17 at 09:00 Lorazepam (Ativan) 1 mg HS PRN PO ANXIETY; Start 06/22/17 at 12:30 Niacinamide 500 mg DAILY PO Last administered on 06/24/17 09:44; Admin Dose 500 MG; Start 06/23/17 at 09:00 Nitroglycerin (Nitroglycerin (Sl Tab) 0.4 Mg) 1 tab [id number] PRN SL CHEST PAIN ; Start 06/22/17 at 12:30 Famotidine (Pepcid) 20 mg Q12 PO Last administered on 06/24/17 09:43; Admin Dose 20 MG; Start 06/23/17 at 21:00 Potassium Chloride (Klor-Con 20) 20 meq DAILY PO Last administered on 14:20; Admin Dose 20 MEQ; Start 06/24/17 at 13:30 MARION CONNELL MD Jun 24, 2017 16:47
[2017-06-25] VITALS (11 sets, daily range): BP systolic 122–168; BP diastolic 60–79; PULSE 60; RESP 19–20
[2017-06-25] MEDS: PANTOPRAZOLE (EC) 40 MG TAB PO SCH (06:02)
[2017-06-25] MEDS: ALBUTEROL 0.083% (NEB) 2.5 MG/3 ML AMP NEB SCH ×2 (07:48→20:42)
[2017-06-25] MEDS: NIACINAMIDE 500 MG PO SCH (09:00)
[2017-06-25] MEDS: ASPIRIN (EC) 81 MG TAB PO SCH (10:31)
[2017-06-25] MEDS: FOLIC ACID 1 MG TAB PO SCH (10:31)
[2017-06-25] MEDS: GABAPENTIN 100 MG CAP PO SCH ×3 (10:33→20:02)
[2017-06-25] MEDS: ALLOPURINOL 100 MG TAB PO SCH ×2 (10:34→20:02)
[2017-06-25] MEDS: FAMOTIDINE 20 MG TAB PO SCH ×2 (10:34→20:02)
[2017-06-25] MEDS: BENAZEPRIL 40 MG TAB PO SCH (10:34)
[2017-06-25] MEDS: POTASSIUM CHLORIDE (SR) 20 MEQ TAB PO SCH (10:35)
[2017-06-25] MEDS: AMIODARONE 200 MG TAB PO SCH (10:36)
[2017-06-25] MEDS: FUROSEMIDE 40 MG INJ IV SCH (10:36)
[2017-06-25] MEDS: APIXABAN 5 MG TABLET PO SCH ×2 (10:38→20:02)
[2017-06-25] MEDS: DIGOXIN 0.125 MG TAB PO SCH (10:38)
[2017-06-25] MEDS: ENOXAPARIN 40 MG/0.4 ML SYG SC SCH (10:50)
[2017-06-25] MEDS: CEFTRIAXONE 1 GM/50 ML (PMX) 50 ML IVPB SCH (13:32)
--- NOTE | 2017-06-25 14:25 | PN ---
Date/Time of Note Date/Time of Note DATE: 06/25/17 TIME: 14:22 Assessment/Plan VTE Prophylaxis VTE Prophylaxis Intervention: ambulation Lines/Catheters IV Catheter Type (from [facility]rs): Saline Lock Urinary Cath still in place: No Assessment/Plan Chief Complaint/Hosp Course 1.Acute hypoxic respiratory failure. 2. Pulmonary edema. 3. Underlying pneumonia. 4. Interstitial lung disease. The patient is on Cordarone. 5. Leukocytosis, 6. anemia, 7. AICD device placement, 8. history of malfunctioning pacemaker wire, 9. history of DVT, 10. history of pancreatitis, 11. history of alcohol abuse. Problems: Assessment/Plan 1.Continue antibiotic 2. continue diuresis with lasix 3. Per cardiology Subjective 24 Hr Interval Summary Constitutional: improved, no complaints Exam/Review of Systems Vital Signs Vitals Vital Signs Date Time Temp Pulse Resp B/P Pulse Ox O2 Delivery O2 Flow Rate FiO2 06/25/17 13:28 97 2.0 06/25/17 13:27 60 20 Nasal Cannula 06/25/17 11:46 98.6 122/60 06/25/17 05:25 27 Intake and Output 06/24/17 06/24/17 06/25/17 15:00 23:00 07:00 Intake Total 850 ml 800 ml 600 ml Output Total 1000 ml 2500 ml 1100 ml Balance -150 ml -1700 ml -500 ml Exam Constitutional: alert, oriented Cardiovascular: regular rate and rhythm Gastrointestinal: soft Musculoskeletal: swelling Results Result Diagram: 06/23/17 0450 06/24/17 09 Medications Medications Current Medications Ondansetron HCl (Zofran Inj) 4 mg Q6H PRN IV NAUSEA AND/OR VOMITING; Start 06/22/17 at 07:00 Acetaminophen (Tylenol Tab) 650 mg Q6H PRN PO PAIN LEVEL 1-3 OR FEVER; Start 06/22/17 at 07:00 Acetaminophen/ Hydrocodone Bitart ([place] (5/325)) 1 tab Q6H PRN PO MODERATE PAIN LEVEL 4-6; Start 06/22/17 at 07:00 Morphine Sulfate (morphine) 2 mg Q4H PRN IV SEVERE PAIN LEVEL 7-10 Last administered on 06/22/17t 21:02; Admin Dose 2 MG; Start 06/22/17 at 07:00 Docusate Sodium (Colace) 100 mg Q12H PRN PO CONSTIPATION Last administered on 06/24/17 06:09; Admin Dose 100 MG; Start 06/22/17 at 07:00 Enoxaparin Sodium (Lovenox) 40 mg DAILY SC Last administered on 06/25/17 10:50 ; Admin Dose 40 MG; Start 06/22/17 at 09:00 Gabapentin 200 mg 200 mg TID PO Last administered on 06/25/17 13:33; Admin Dose 200 MG; Start 06/22/17 at 09:00 Ceftriaxone Sodium (Rocephin) 50 ml @ 100 mls/hr Q24H IVPB Last administered on 06/25/17 13:32; Admin Dose 100 MLS/HR; Start 06/22/17 at 12:00 Furosemide (Lasix) 40 mg DAILY IV Last administered on 06/25/17 10:36; Admin Dose 40 MG; Start 06/23/17 at 09:00 Acetaminophen (Tylenol Tab) 325 mg Q4H PRN PO PAIN AND OR ELEVATED TEMP; Start 06/22/17 at 12:30 Allopurinol (Zyloprim) 100 mg BID PO Last administered on 06/25/17 10:34; Admin Dose 100 MG; Start 06/22/17 at 21:00 Amiodarone HCl (Cordarone) 200 mg DAILY PO Last administered on 06/25/17 10:36 ; Admin Dose 200 MG; Start 06/23/17 at 09:00 Apixaban (Eliquis) 5 mg BID PO Last administered on 06/25/17 10:38; Admin Dose 5 MG; Start 06/22/17 at 21:00 Aspirin (Halfprin) 81 mg DAILY PO Last administered on 06/25/17 10:31; Admin Dose 81 MG; Start 06/23/17 at 09:00 Benazepril HCl (Lotensin) 40 mg DAILY PO Last administered on 06/25/17 10:34; Admin Dose 40 MG; Start 06/23/17 at 09:00 Carvedilol (Coreg) 25 mg BID PO Last administered on 06/25/17 10:35; Admin Dose 25 MG; Start 06/22/17 at 21:00 Clonidine (Catapres) 0.1 mg Q6 PO Last administered on 06/25/17 13:34; Admin Dose 0.1 MG; Start 06/22/17 at 18:00 Digoxin (Digoxin) 0.125 mg DAILY PO Last administered on 06/25/17 10:38; Admin Dose 0.125 MG; Start 06/23/17 at 09:00 Folic Acid (Folic Acid) 1 mg DAILY PO Last administered on 06/25/17 10:31; Admin Dose 1 MG; Start 06/23/17 at 09:00 Lorazepam (Ativan) 1 mg HS PRN PO ANXIETY; Start 06/22/17 at 12:30 Niacinamide 500 mg DAILY PO Last administered on 06/25/17 09:00; Admin Dose 500 MG; Start 06/23/17 at 09:00 Nitroglycerin (Nitroglycerin (Sl Tab) 0.4 Mg) 1 tab [id number] PRN SL CHEST PAIN ; Start 06/22/17 at 12:30 Famotidine (Pepcid) 20 mg Q12 PO Last administered on 06/25/17 10:34; Admin Dose 20 MG; Start 06/23/17 at 21:00 Potassium Chloride (Klor-Con 20) 20 meq DAILY PO Last administered on 10:35; Admin Dose 20 MEQ; Start 06/24/17 at 13:30 FRANK BRIAN Jun 25, 2017 14:25
[2017-06-26] VITALS (11 sets, daily range): BP systolic 127–164; BP diastolic 60–76; PULSE 60; RESP 19–21
[2017-06-26] MEDS: morphine 2 MG INJ IV PRN (06:03)
[2017-06-26] MEDS: PANTOPRAZOLE (EC) 40 MG TAB PO SCH (06:29)
[2017-06-26] MEDS: ALBUTEROL 0.083% (NEB) 2.5 MG/3 ML AMP NEB SCH ×3 (07:50→20:33)
[2017-06-26] MEDS: FAMOTIDINE 20 MG TAB PO SCH ×2 (09:09→20:43)
[2017-06-26] MEDS: GABAPENTIN 100 MG CAP PO SCH ×3 (09:09→20:43)
[2017-06-26] MEDS: POTASSIUM CHLORIDE (SR) 20 MEQ TAB PO SCH (09:09)
[2017-06-26] MEDS: NIACINAMIDE 500 MG PO SCH (09:09)
[2017-06-26] MEDS: ASPIRIN (EC) 81 MG TAB PO SCH (09:09)
[2017-06-26] MEDS: FOLIC ACID 1 MG TAB PO SCH (09:09)
[2017-06-26] MEDS: ALLOPURINOL 100 MG TAB PO SCH ×2 (09:09→20:44)
[2017-06-26] MEDS: APIXABAN 5 MG TABLET PO SCH ×2 (09:09→20:43)
[2017-06-26] MEDS: BENAZEPRIL 40 MG TAB PO SCH (09:10)
[2017-06-26] MEDS: FUROSEMIDE 40 MG INJ IV SCH (09:10)
[2017-06-26] MEDS: AMIODARONE 200 MG TAB PO SCH (09:11)
[2017-06-26] MEDS: DIGOXIN 0.125 MG TAB PO SCH (09:12)
[2017-06-26] MEDS: ENOXAPARIN 40 MG/0.4 ML SYG SC SCH (09:52)
[2017-06-26] MEDS: CEFTRIAXONE 1 GM/50 ML (PMX) 50 ML IVPB SCH (12:40)
--- NOTE | 2017-06-26 14:21 | PN ---
Date/Time of Note Date/Time of Note DATE: 06/26/17 TIME: 14:20 Assessment/Plan VTE Prophylaxis VTE Prophylaxis Intervention: other Lines/Catheters IV Catheter Type (from [facility]): Saline Lock Urinary Cath still in place: No Assessment/Plan Chief Complaint/Hosp Course IMPRESSION: 1. The patient has acute hypoxic respiratory failure.better 2. Pulmonary edema. 3. Underlying pneumonia. 4. Interstitial lung disease. The patient is on Cordarone. 5. Other diagnoses include: The patient has leukocytosis, anemia, AICD device placement, history of malfunctioning pacemaker wire, history of DVT, history of pancreatitis, history of alcohol abuse. 6 hypokalemia plan antibiotic lasix kcl per cardio ck xr chest Problems: Subjective 24 Hr Interval Summary Respiratory: shortness of breath (better) Cardiovascular: no complaints Exam/Review of Systems Vital Signs Vitals Vital Signs Date Time Temp Pulse Resp B/P Pulse Ox O2 Delivery O2 Flow Rate FiO2 06/26/17 12:35 98.1 63 19 129/60 91 06/26/17 08:15 Nasal Cannula 2.0 06/26/17 01:33 27 Intake and Output 06/25/17 06/25/17 06/26/17 15:00 23:00 07:00 Intake Total 640 ml 700 ml Output Total 1075 ml 1300 ml Balance -435 ml -600 ml Exam Respiratory: diminished breath sounds Cardiovascular: regular rate and rhythm Gastrointestinal: soft Musculoskeletal: nl extremities to inspection Extremities: normal pulses Neurological: DIESEL FITTER MECHANIC II-XII intact Results Result Diagram: 06/23/17 0450 06/24/17 0999 Medications Medications Current Medications Ondansetron HCl (Zofran Inj) 4 mg Q6H PRN IV NAUSEA AND/OR VOMITING; Start 06/22/17 at 07:00 Acetaminophen (Tylenol Tab) 650 mg Q6H PRN PO PAIN LEVEL 1-3 OR FEVER; Start 06/22/17 at 07:00 Acetaminophen/ Hydrocodone Bitart ([place] (5/325)) 1 tab Q6H PRN PO MODERATE PAIN LEVEL 4-6; Start 06/22/17 at 07:00 Morphine Sulfate (morphine) 2 mg Q4H PRN IV SEVERE PAIN LEVEL 7-10 Last administered on 06/26/17t 06:03; Admin Dose 2 MG; Start 06/22/17 at 07:00 Docusate Sodium (Colace) 100 mg Q12H PRN PO CONSTIPATION Last administered on 06/24/17 06:09; Admin Dose 100 MG; Start 06/22/17 at 07:00 Enoxaparin Sodium (Lovenox) 40 mg DAILY SC Last administered on 06/26/17 09:52 ; Admin Dose 40 MG; Start 06/22/17 at 09:00 Gabapentin 200 mg 200 mg TID PO Last administered on 06/26/17 12:40; Admin Dose 200 MG; Start 06/22/17 at 09:00 Ceftriaxone Sodium (Rocephin) 50 ml @ 100 mls/hr Q24H IVPB Last administered on 06/26/17 12:40; Admin Dose 100 MLS/HR; Start 06/22/17 at 12:00 Furosemide (Lasix) 40 mg DAILY IV Last administered on 06/26/17 09:10; Admin Dose 40 MG; Start 06/23/17 at 09:00 Acetaminophen (Tylenol Tab) 325 mg Q4H PRN PO PAIN AND OR ELEVATED TEMP; Start 06/22/17 at 12:30 Allopurinol (Zyloprim) 100 mg BID PO Last administered on 06/26/17 09:09; Admin Dose 100 MG; Start 06/22/17 at 21:00 Amiodarone HCl (Cordarone) 200 mg DAILY PO Last administered on 06/26/17 09:11 ; Admin Dose 200 MG; Start 06/23/17 at 09:00 Apixaban (Eliquis) 5 mg BID PO Last administered on 06/26/17 09:09; Admin Dose 5 MG; Start 06/22/17 at 21:00 Aspirin (Halfprin) 81 mg DAILY PO Last administered on 06/26/17 09:09; Admin Dose 81 MG; Start 06/23/17 at 09:00 Benazepril HCl (Lotensin) 40 mg DAILY PO Last administered on 06/26/17 09:10; Admin Dose 40 MG; Start 06/23/17 at 09:00 Carvedilol (Coreg) 25 mg BID PO Last administered on 06/26/17 09:10; Admin Dose 25 MG; Start 06/22/17 at 21:00 Clonidine (Catapres) 0.1 mg Q6 PO Last administered on 06/26/17 12:40; Admin Dose 0.1 MG; Start 06/22/17 at 18:00 Digoxin (Digoxin) 0.125 mg DAILY PO Last administered on 06/26/17 09:12; Admin Dose 0.125 MG; Start 06/23/17 at 09:00 Folic Acid (Folic Acid) 1 mg DAILY PO Last administered on 06/26/17 09:09; Admin Dose 1 MG; Start 06/23/17 at 09:00 Lorazepam (Ativan) 1 mg HS PRN PO ANXIETY Last administered on 06/25/17 20:02 ; Admin Dose 1 MG; Start 06/22/17 at 12:30 Niacinamide 500 mg DAILY PO Last administered on 06/26/17 09:09; Admin Dose 500 MG; Start 06/23/17 at 09:00 Nitroglycerin (Nitroglycerin (Sl Tab) 0.4 Mg) 1 tab [id number] PRN SL CHEST PAIN ; Start 06/22/17 at 12:30 Famotidine (Pepcid) 20 mg Q12 PO Last administered on 06/26/17 09:09; Admin Dose 20 MG; Start 06/23/17 at 21:00 Potassium Chloride (Klor-Con 20) 20 meq DAILY PO Last administered on 09:09; Admin Dose 20 MEQ; Start 06/24/17 at 13:30 Multivitamins Therapeutic (Theragran) 1 tab DAILY PO ; Start 06/27/17 at 09:00 MARION CONNELL MD Jun 26, 2017 14:21
--- NOTE | 2017-06-26 14:21 | PN ---
Date/Time of Note Date/Time of Note DATE: 06/26/17 TIME: 14:20 Assessment/Plan VTE Prophylaxis VTE Prophylaxis Intervention: other Lines/Catheters IV [facility] Type (from [facility]): Saline Lock Urinary Cath still in place: No Assessment/Plan Chief Complaint/Hosp Course IMPRESSION: 1. The patient has acute hypoxic respiratory failure.better 2. Pulmonary edema. 3. Underlying pneumonia. 4. Interstitial lung disease. The patient is on Cordarone. 5. Other diagnoses include: The patient has leukocytosis, anemia, AICD device placement, history of malfunctioning pacemaker wire, history of DVT, history of pancreatitis, history of alcohol abuse. 6 hypokalemia plan antibiotic lasix kcl per cardio ck xr chest Problems: Subjective 24 Hr Interval Summary Respiratory: shortness of breath (better) Cardiovascular: no complaints Exam/Review of Systems Vital Signs Vitals Vital Signs Date Time Temp Pulse Resp B/P Pulse Ox O2 Delivery O2 Flow Rate FiO2 06/26/17 12:35 98.1 63 19 129/60 91 06/26/17 08:15 Nasal Cannula 2.0 06/26/17 01:33 27 Intake and Output 06/25/17 06/25/17 06/26/17 15:00 23:00 07:00 Intake Total 640 ml 700 ml Output Total 1075 ml 1300 ml Balance -435 ml -600 ml Exam Respiratory: diminished breath sounds Cardiovascular: regular rate and rhythm Gastrointestinal: soft Musculoskeletal: nl extremities to inspection Extremities: normal pulses Neurological: LEAD ENTERPRISE ARCHITECT II-XII intact Results Result Diagram: 06/23/17 0450 06/24/17 0946 Medications Medications Current Medications Ondansetron HCl (Zofran Inj) 4 mg Q6H PRN IV NAUSEA AND/OR VOMITING; Start 06/22/17 at 07:00 Acetaminophen (Tylenol Tab) 650 mg Q6H PRN PO PAIN LEVEL 1-3 OR FEVER; Start 06/22/17 at 07:00 Acetaminophen/ Hydrocodone Bitart ([place] (5/325)) 1 tab Q6H PRN PO MODERATE PAIN LEVEL 4-6; Start 06/22/17 at 07:00 Morphine Sulfate (morphine) 2 mg Q4H PRN IV SEVERE PAIN LEVEL 7-10 Last administered on 06/26/17t 06:03; Admin Dose 2 MG; Start 06/22/17 at 07:00 Docusate Sodium (Colace) 100 mg Q12H PRN PO CONSTIPATION Last administered on 06/24/17 06:09; Admin Dose 100 MG; Start 06/22/17 at 07:00 Enoxaparin Sodium (Lovenox) 40 mg DAILY SC Last administered on 06/26/17 09:52 ; Admin Dose 40 MG; Start 06/22/17 at 09:00 Gabapentin 200 mg 200 mg TID PO Last administered on 06/26/17 12:40; Admin Dose 200 MG; Start 06/22/17 at 09:00 Ceftriaxone Sodium (Rocephin) 50 ml @ 100 mls/hr Q24H IVPB Last administered on 06/26/17 12:40; Admin Dose 100 MLS/HR; Start 06/22/17 at 12:00 Furosemide (Lasix) 40 mg DAILY IV Last administered on 06/26/17 09:10; Admin Dose 40 MG; Start 06/23/17 at 09:00 Acetaminophen (Tylenol Tab) 325 mg Q4H PRN PO PAIN AND OR ELEVATED TEMP; Start 06/22/17 at 12:30 Allopurinol (Zyloprim) 100 mg BID PO Last administered on 06/26/17 09:09; Admin Dose 100 MG; Start 06/22/17 at 21:00 Amiodarone HCl (Cordarone) 200 mg DAILY PO Last administered on 06/26/17 09:11 ; Admin Dose 200 MG; Start 06/23/17 at 09:00 Apixaban (Eliquis) 5 mg BID PO Last administered on 06/26/17 09:09; Admin Dose 5 MG; Start 06/22/17 at 21:00 Aspirin (Halfprin) 81 mg DAILY PO Last administered on 06/26/17 09:09; Admin Dose 81 MG; Start 06/23/17 at 09:00 Benazepril HCl (Lotensin) 40 mg DAILY PO Last administered on 06/26/17 09:10; Admin Dose 40 MG; Start 06/23/17 at 09:00 Carvedilol (Coreg) 25 mg BID PO Last administered on 06/26/17 09:10; Admin Dose 25 MG; Start 06/22/17 at 21:00 Clonidine (Catapres) 0.1 mg Q6 PO Last administered on 06/26/17 12:40; Admin Dose 0.1 MG; Start 06/22/17 at 18:00 Digoxin (Digoxin) 0.125 mg DAILY PO Last administered on 06/26/17 09:12; Admin Dose 0.125 MG; Start 06/23/17 at 09:00 Folic Acid (Folic Acid) 1 mg DAILY PO Last administered on 06/26/17 09:09; Admin Dose 1 MG; Start 06/23/17 at 09:00 Lorazepam (Ativan) 1 mg HS PRN PO ANXIETY Last administered on 06/25/17 20:02 ; Admin Dose 1 MG; Start 06/22/17 at 12:30 Niacinamide 500 mg DAILY PO Last administered on 06/26/17 09:09; Admin Dose 500 MG; Start 06/23/17 at 09:00 Nitroglycerin (Nitroglycerin (Sl Tab) 0.4 Mg) 1 tab [id number] PRN SL CHEST PAIN ; Start 06/22/17 at 12:30 Famotidine (Pepcid) 20 mg Q12 PO Last administered on 06/26/17 09:09; Admin Dose 20 MG; Start 06/23/17 at 21:00 Potassium Chloride (Klor-Con 20) 20 meq DAILY PO Last administered on 09:09; Admin Dose 20 MEQ; Start 06/24/17 at 13:30 Multivitamins Therapeutic (Theragran) 1 tab DAILY PO ; Start 06/27/17 at 09:00 MARION CONNELL MD Jun 26, 2017 14:21
--- NOTE | 2017-06-26 14:54 | RADRPT ---
PROCEDURE: XR Chest. CLINICAL INDICATION: Cough. TECHNIQUE: Two views. Frontal and lateral. COMPARISON: 06/22/2017. FINDINGS: Previously noted interstitial pulmonary disease consistent with pulmonary edema is markedly improved . There is no new focal airspace disease. The heart size is normal. There is calcification in the aorta consistent with atherosclerosis. There is a biventricular pacemaker/internal cardiac defibrillator. There are small bilateral pleural effusions. There is no pneumothorax. IMPRESSION: 1. Improved appearance of the lungs. 2. Atherosclerosis. 3. Biventricular pacemaker/internal cardiac defibrillator. 4. Small bilateral pleural effusions. RPTAT: QQ .Dany Silva MD, MD Date Time Electronically viewed and signed by .Dany Silva MD, on 06/26/2017 14:54 .R/
[2017-06-27] VITALS (12 sets, daily range): BP systolic 130–169; BP diastolic 59–77; PULSE 59–63; RESP 18–22
[2017-06-27] MEDS: DOCUSATE SODIUM 100 MG CAP PO PRN (05:39)
[2017-06-27] MEDS: PANTOPRAZOLE (EC) 40 MG TAB PO SCH (06:50)
[2017-06-27] MEDS: ALBUTEROL 0.083% (NEB) 2.5 MG/3 ML AMP NEB SCH ×3 (09:00→20:10)
[2017-06-27] MEDS: MULTIVITAMINS THERAPEUTIC TAB PO SCH (09:28)
[2017-06-27] MEDS: ALLOPURINOL 100 MG TAB PO SCH ×2 (09:28→20:30)
[2017-06-27] MEDS: GABAPENTIN 100 MG CAP PO SCH ×3 (09:28→21:30)
[2017-06-27] MEDS: APIXABAN 5 MG TABLET PO SCH ×2 (09:28→20:30)
[2017-06-27] MEDS: FOLIC ACID 1 MG TAB PO SCH (09:28)
[2017-06-27] MEDS: FAMOTIDINE 20 MG TAB PO SCH ×2 (09:28→21:30)
[2017-06-27] MEDS: POTASSIUM CHLORIDE (SR) 20 MEQ TAB PO SCH (09:29)
[2017-06-27] MEDS: ASPIRIN (EC) 81 MG TAB PO SCH (09:29)
[2017-06-27] MEDS: FUROSEMIDE 40 MG INJ IV SCH (09:30)
[2017-06-27] MEDS: AMIODARONE 200 MG TAB PO SCH (09:30)
[2017-06-27] MEDS: DIGOXIN 0.125 MG TAB PO SCH (09:30)
[2017-06-27] MEDS: NIACINAMIDE 500 MG PO SCH (09:30)
[2017-06-27] MEDS: BENAZEPRIL 40 MG TAB PO SCH (09:30)
[2017-06-27] MEDS: ENOXAPARIN 40 MG/0.4 ML SYG SC SCH (10:06)
[2017-06-27] MEDS: CEFTRIAXONE 1 GM/50 ML (PMX) 50 ML IVPB SCH ×2 (12:00→14:14)
--- NOTE | 2017-06-27 23:15 | PN ---
Date/Time of Note Date/Time of Note DATE: 06/27/17 TIME: 23:14 Assessment/Plan VTE Prophylaxis VTE Prophylaxis Intervention: other Lines/Catheters IV [facility] Type [facility]from [facility] Saline Lock Urinary Cath still in place: No Assessment/Plan Chief Complaint/Hosp Course IMPRESSION: 1. The patient has acute hypoxic respiratory failure.better 2. Pulmonary edema. 3. Underlying pneumonia. 4. Interstitial lung disease. The patient is on Cordarone. 5. Other diagnoses include: The patient has leukocytosis, anemia, AICD device placement, history of malfunctioning pacemaker wire, history of DVT, history of pancreatitis, history of alcohol abuse. 6 hypokalemia plan antibiotic lasix per cardio ck xr chest snf soon Problems: Subjective 24 Hr Interval Summary Respiratory: shortness of breath (better) Exam/Review of Systems Vital Signs Vitals Vital Signs Date Time Temp Pulse Resp B/P Pulse Ox O2 Delivery O2 Flow Rate FiO2 06/27/17 20:10 96 21 06/27/17 20:10 61 18 06/27/17 20:00 98.2 151/70 06/27/17 12:44 2.0 06/27/17 12:42 Nasal Cannula Intake and Output 06/26/17 06/26/17 06/27/17 15:00 23:00 07:00 Intake Total 750 ml 400 ml Output Total 500 ml 500 ml 1200 ml Balance -500 ml 250 ml -800 ml Exam Neck: supple Respiratory: diminished breath sounds Cardiovascular: regular rate and rhythm Gastrointestinal: bowel sounds (+), soft Extremities: No edema Results Result Diagram: 06/23/17 0450 06/27/17 0617 Results 24 hrs Laboratory Tests Test 06/27/17 06:17 Sodium Level 142 Potassium Level 3.5 Chloride Level 97 Carbon Dioxide Level 37 H Anion Gap 12 Blood Urea Nitrogen 14 Creatinine 0.90 Glucose Level 97 Calcium Level 8.8 Total Bilirubin 0.2 Direct Bilirubin 0.00 Indirect Bilirubin 0.2 Aspartate Amino Transf (AST/SGOT) 24 Alanine Aminotransferase (ALT/SGPT) 27 Alkaline Phosphatase 86 Total Protein 6.7 Albumin 3.3 Globulin 3.40 H Albumin/Globulin Ratio 0.97 Medications Medications Current Medications Ondansetron HCl (Zofran Inj) 4 mg Q6H PRN IV NAUSEA AND/OR VOMITING; Start 06/22/17 at 07:00 Acetaminophen (Tylenol Tab) 650 mg Q6H PRN PO PAIN LEVEL 1-3 OR FEVER; Start 06/22/17 at 07:00 Acetaminophen/ Hydrocodone Bitart ([place] (5/325)) 1 tab Q6H PRN PO MODERATE PAIN LEVEL 4-6; Start 06/22/17 at 07:00 Morphine Sulfate (morphine) 2 mg Q4H PRN IV SEVERE PAIN LEVEL 7-10 Last administered on 06/26/17 06:03; Admin Dose 2 MG; Start 06/22/17 at 07:00 Docusate Sodium (Colace) 100 mg Q12H PRN PO CONSTIPATION Last administered on 06/27/17 05:39; Admin Dose 100 MG; Start 06/22/17 at 07:00 Enoxaparin Sodium (Lovenox) 40 mg DAILY SC Last administered on 06/27/17 10:06 ; Admin Dose 40 MG; Start 06/22/17 at 09:00 Gabapentin 200 mg 200 mg TID PO Last administered on 06/27/17 21:30; Admin Dose 200 MG; Start 06/22/17 at 09:00 Ceftriaxone Sodium (Rocephin) 50 ml @ 100 mls/hr Q24H IVPB Last administered on 06/27/17 14:14; Admin Dose 100 MLS/HR; Start 06/22/17 at 12:00 Furosemide (Lasix) 40 mg DAILY IV Last administered on 06/27/17 09:30; Admin Dose 40 MG; Start 06/23/17 at 09:00 Acetaminophen (Tylenol Tab) 325 mg Q4H PRN PO PAIN AND OR ELEVATED TEMP; Start 06/22/17 at 12:30 Allopurinol (Zyloprim) 100 mg BID PO Last administered on 06/27/17 20:30; Admin Dose 100 MG; Start 06/22/17 at 21:00 Amiodarone HCl (Cordarone) 200 mg DAILY PO Last administered on 06/27/17 09:30 ; Admin Dose 200 MG; Start 06/23/17 at 09:00 Apixaban (Eliquis) 5 mg BID PO Last administered on 06/27/17 20:30; Admin Dose 5 MG; Start 06/22/17 at 21:00 Aspirin (Halfprin) 81 mg DAILY PO Last administered on 06/27/17 09:29; Admin Dose 81 MG; Start 06/23/17 at 09:00 Benazepril HCl (Lotensin) 40 mg DAILY PO Last administered on 06/27/17 09:30; Admin Dose 40 MG; Start 06/23/17 at 09:00 Carvedilol (Coreg) 25 mg BID PO Last administered on 06/27/17 21:30; Admin Dose 25 MG; Start 06/22/17 at 21:00 Clonidine (Catapres) 0.1 mg Q6 PO Last administered on 06/27/17 05:39; Admin Dose 0.1 MG; Start 06/22/17 at 18:00 Digoxin (Digoxin) 0.125 mg DAILY PO Last administered on 06/27/17 09:30; Admin Dose 0.125 MG; Start 06/23/17 at 09:00 Folic Acid (Folic Acid) 1 mg DAILY PO Last administered on 06/27/17 09:28; Admin Dose 1 MG; Start 06/23/17 at 09:00 Lorazepam (Ativan) 1 mg HS PRN PO ANXIETY Last administered on 06/25/17 20:02 ; Admin Dose 1 MG; Start 06/22/17 at 12:30 Niacinamide 500 mg DAILY PO Last administered on 06/27/17 09:30; Admin Dose 500 MG; Start 06/23/17 at 09:00 Nitroglycerin (Nitroglycerin (Sl Tab) 0.4 Mg) 1 tab [id number] PRN SL CHEST PAIN ; Start 06/22/17 at 12:30 Famotidine (Pepcid) 20 mg Q12 PO Last administered on 06/27/17 21:30; Admin Dose 20 MG; Start 06/23/17 at 21:00 Potassium Chloride (Klor-Con 20) 20 meq DAILY PO Last administered on 09:29; Admin Dose 20 MEQ; Start 06/24/17 at 13:30 Multivitamins Therapeutic (Theragran) 1 tab DAILY PO Last administered on 09:28; Admin Dose 1 TAB; Start 06/27/17 at 09:00 MARION CONNELL MD Jun 27, 2017 23:15
[2017-06-28] VITALS (11 sets, daily range): BP systolic 130–159; BP diastolic 65–76; PULSE 60; RESP 17–20
[2017-06-28] MEDS: PANTOPRAZOLE (EC) 40 MG TAB PO SCH (06:03)
[2017-06-28] MEDS: ALBUTEROL 0.083% (NEB) 2.5 MG/3 ML AMP NEB SCH ×4 (09:00→20:30)
[2017-06-28] MEDS: GABAPENTIN 100 MG CAP PO SCH ×3 (09:56→21:19)
[2017-06-28] MEDS: ALLOPURINOL 100 MG TAB PO SCH ×2 (09:57→21:19)
[2017-06-28] MEDS: BENAZEPRIL 40 MG TAB PO SCH (09:57)
[2017-06-28] MEDS: ASPIRIN (EC) 81 MG TAB PO SCH (09:57)
[2017-06-28] MEDS: FAMOTIDINE 20 MG TAB PO SCH ×2 (09:58→21:18)
[2017-06-28] MEDS: MULTIVITAMINS THERAPEUTIC TAB PO SCH (09:58)
[2017-06-28] MEDS: AMIODARONE 200 MG TAB PO SCH (09:58)
[2017-06-28] MEDS: POTASSIUM CHLORIDE (SR) 20 MEQ TAB PO SCH (09:58)
[2017-06-28] MEDS: FOLIC ACID 1 MG TAB PO SCH (09:59)
[2017-06-28] MEDS: APIXABAN 5 MG TABLET PO SCH ×2 (09:59→21:19)
[2017-06-28] MEDS: FUROSEMIDE 40 MG INJ IV SCH (10:00)
[2017-06-28] MEDS: ENOXAPARIN 40 MG/0.4 ML SYG SC SCH (10:09)
[2017-06-28] MEDS: DIGOXIN 0.125 MG TAB PO SCH (10:14)
[2017-06-28] MEDS: NIACIN 500 MG TAB PO SCH (10:22)
[2017-06-28] MEDS ORDERED: POLYETHYLENE GLYCOL 17 GM PACKET PO PRN (14:30)
--- NOTE | 2017-06-28 16:10 | PDOCDIS ---
Discharge Instructions CONDITION Patient Condition: Stable HOME CARE INSTRUCTIONS: Special Diet: cardiac ACTIVITY: Activity Restrictions: Slowly Increase Activity FOLLOW UP/APPOINTMENTS Follow-up Plan f/u dr connell at [facility] see dr rocha 1 wk MARION CONNELL MD Jun 28, 2017 16:10
[2017-06-28] MEDS ORDERED: DOCU-216 PO (16:16)
[2017-06-28] MEDS ORDERED: POTA20TA15 PO (16:16)
[2017-06-28] MEDS ORDERED: POLY17PO6 PO (16:16)
--- NOTE | 2017-06-28 22:25 | PN ---
Date/Time of Note Date/Time of Note DATE: 06/28/17 TIME: 22:24 Assessment/Plan VTE Prophylaxis VTE Prophylaxis Intervention: other Lines/Catheters IV C[facility]ter Type (from [facility] Saline Lock Urinary Cath still in place: No Assessment/Plan Chief Complaint/Hosp Course IMPRESSION: 1. The patient has acute hypoxic respiratory failure.better 2. Pulmonary edema. 3. Underlying pneumonia. 4. Interstitial lung disease. The patient is on Cordarone. 5. Other diagnoses include: The patient has leukocytosis, anemia, AICD device placement, history of malfunctioning pacemaker wire, history of DVT, history of pancreatitis, history of alcohol abuse. 6 hypokalemia plan antibiotic lasix per cardio ck xr chest snf Problems: Subjective 24 Hr Interval Summary Respiratory: shortness of breath (better) Cardiovascular: no complaints Gastrointestinal: no complaints Exam/Review of Systems Vital Signs Vitals Vital Signs Date Time Temp Pulse Resp B/P Pulse Ox O2 Delivery O2 Flow Rate FiO2 06/28/17 20:31 60 18 95 21 06/28/17 15:56 98.0 157/74 06/27/17 12:44 2.0 06/27/17 12:42 Nasal Cannula Intake and Output 06/27/17 06/27/17 06/28/17 15:00 23:00 07:00 Intake Total 500 ml Output Total 750 ml Balance -250 ml Exam Neck: supple Respiratory: clear to auscultation Cardiovascular: regular rate and rhythm Gastrointestinal: bowel sounds (+), soft Extremities: No edema Results Result Diagram: 06/27/17616 Medications Medications Current Medications Ondansetron HCl (Zofran Inj) 4 mg Q6H PRN IV NAUSEA AND/OR VOMITING; Start 06/22/17 at 07:00 Acetaminophen (Tylenol Tab) 650 mg Q6H PRN PO PAIN LEVEL 1-3 OR FEVER; Start 06/22/17 at 07:00 Acetaminophen/ Hydrocodone Bitart ([place] (5/325)) 1 tab Q6H PRN PO MODERATE PAIN LEVEL 4-6; Start 06/22/17 at 07:00 Morphine Sulfate (morphine) 2 mg Q4H PRN IV SEVERE PAIN LEVEL 7-10 Last administered on 06/26/17t 06:03; Admin Dose 2 MG; Start 06/22/17 at 07:00 Docusate Sodium (Colace) 100 mg Q12H PRN PO CONSTIPATION Last administered on 06/27/17 05:39; Admin Dose 100 MG; Start 06/22/17 at 07:00 Enoxaparin Sodium (Lovenox) 40 mg DAILY SC Last administered on 06/28/17 10:09 ; Admin Dose 40 MG; Start 06/22/17 at 09:00 Gabapentin 200 mg 200 mg TID PO Last administered on 06/28/17 21:19; Admin Dose 200 MG; Start 06/22/17 at 09:00 Ceftriaxone Sodium (Rocephin) 50 ml @ 100 mls/hr Q24H IVPB Last administered on 06/27/17 14:14; Admin Dose 100 MLS/HR; Start 06/22/17 at 12:00 Furosemide (Lasix) 40 mg DAILY IV Last administered on 06/28/17 10:00; Admin Dose 40 MG; Start 06/23/17 at 09:00 Acetaminophen (Tylenol Tab) 325 mg Q4H PRN PO PAIN AND OR ELEVATED TEMP; Start 06/22/17 at 12:30 Allopurinol (Zyloprim) 100 mg BID PO Last administered on 06/28/17 21:19; Admin Dose 100 MG; Start 06/22/17 at 21:00 Amiodarone HCl (Cordarone) 200 mg DAILY PO Last administered on 06/28/17 09:58 ; Admin Dose 200 MG; Start 06/23/17 at 09:00 Apixaban (Eliquis) 5 mg BID PO Last administered on 06/28/17 21:19; Admin Dose 5 MG; Start 06/22/17 at 21:00 Aspirin (Halfprin) 81 mg DAILY PO Last administered on 06/28/17 09:57; Admin Dose 81 MG; Start 06/23/17 at 09:00 Benazepril HCl (Lotensin) 40 mg DAILY PO Last administered on 06/28/17 09:57; Admin Dose 40 MG; Start 06/23/17 at 09:00 Carvedilol (Coreg) 25 mg BID PO Last administered on 06/28/17 21:18; Admin Dose 25 MG; Start 06/22/17 at 21:00 Clonidine (Catapres) 0.1 mg Q6 PO Last administered on 06/28/17 18:08; Admin Dose 0.1 MG; Start 06/22/17 at 18:00 Digoxin (Digoxin) 0.125 mg DAILY PO Last administered on 06/28/17 10:14; Admin Dose 0.125 MG; Start 06/23/17 at 09:00 Folic Acid (Folic Acid) 1 mg DAILY PO Last administered on 06/28/17 09:59; Admin Dose 1 MG; Start 06/23/17 at 09:00 Lorazepam (Ativan) 1 mg HS PRN PO ANXIETY Last administered on 06/25/17 20:02 ; Admin Dose 1 MG; Start 06/22/17 at 12:30 Nitroglycerin (Nitroglycerin (Sl Tab) 0.4 Mg) 1 tab [id number] PRN SL CHEST PAIN ; Start 06/22/17 at 12:30 Famotidine (Pepcid) 20 mg Q12 PO Last administered on 06/28/17 21:18; Admin Dose 20 MG; Start 06/23/17 at 21:00 Potassium Chloride (Klor-Con 20) 20 meq DAILY PO Last administered on 09:58; Admin Dose 20 MEQ; Start 06/24/17 at 13:30 Multivitamins Therapeutic (Theragran) 1 tab DAILY PO Last administered on 09:58; Admin Dose 1 TAB; Start 06/27/17 at 09:00 Niacin (Niacin) 500 mg DAILY PO Last administered on 06/28/17 10:22; Admin Dose 500 MG; Start 06/28/17 at 10:30 Polyethylene Glycol (Miralax) 17 gm DAILY PRN PO constipation Last administered on 06/28/17 15:26; Admin Dose 17 GM; Start 06/28/17 at 14:30 MARION CONNELL MD Jun 28, 2017 22:25
[2017-06-29] VITALS (8 sets, daily range): BP systolic 118–178; BP diastolic 60–81; PULSE 60; RESP 17–20
[2017-06-29] MEDS: ASPIRIN (EC) 81 MG TAB PO SCH (08:23)
[2017-06-29] MEDS: FUROSEMIDE 40 MG INJ IV SCH (08:23)
[2017-06-29] MEDS: NIACIN 500 MG TAB PO SCH (08:23)
[2017-06-29] MEDS: GABAPENTIN 100 MG CAP PO SCH (08:24)
[2017-06-29] MEDS: AMIODARONE 200 MG TAB PO SCH (08:24)
[2017-06-29] MEDS: DIGOXIN 0.125 MG TAB PO SCH (08:24)
[2017-06-29] MEDS: BENAZEPRIL 40 MG TAB PO SCH (08:25)
[2017-06-29] MEDS: PANTOPRAZOLE (EC) 40 MG TAB PO SCH (08:25)
[2017-06-29] MEDS: APIXABAN 5 MG TABLET PO SCH (08:25)
[2017-06-29] MEDS: MULTIVITAMINS THERAPEUTIC TAB PO SCH (08:25)
[2017-06-29] MEDS: ALLOPURINOL 100 MG TAB PO SCH (08:25)
[2017-06-29] MEDS: FAMOTIDINE 20 MG TAB PO SCH (08:25)
[2017-06-29] MEDS: FOLIC ACID 1 MG TAB PO SCH (08:25)
[2017-06-29] MEDS: POTASSIUM CHLORIDE (SR) 20 MEQ TAB PO SCH (08:25)
[2017-06-29] MEDS: ALBUTEROL 0.083% (NEB) 2.5 MG/3 ML AMP NEB SCH (08:39)
[2017-06-29] MEDS: ENOXAPARIN 40 MG/0.4 ML SYG SC SCH (08:43)
[2017-06-29] MEDS: CEFTRIAXONE 1 GM/50 ML (PMX) 50 ML IVPB SCH (12:00)
== END 2017-06-29 12:30 | DRG 291 ==
LOC: E/R 02:32 → TEL 05:30
PROVIDERS: ADMIT Internal Medicine Nephrology; ATTEND Internal Medicine Nephrology
DX: I13.0 Hypertensive heart and chronic kidney disease with heart failure and stage 1 through stage 4 chronic kidney disease, or unspecified chronic kidney disease (principal); J18.9 Pneumonia, unspecified organism; J96.01 Acute respiratory failure with hypoxia; I50.33 Acute on chronic diastolic (congestive) heart failure; T82.190A Other mechanical complication of cardiac electrode, initial encounter; E11.22 Type 2 diabetes mellitus with diabetic chronic kidney disease; J44.9 Chronic obstructive pulmonary disease, unspecified; E11.40 Type 2 diabetes mellitus with diabetic neuropathy, unspecified; Z86.718 Personal history of other venous thrombosis and embolism; I44.7 Left bundle-branch block, unspecified; I42.9 Cardiomyopathy, unspecified; E87.6 Hypokalemia; Y71.8 Miscellaneous cardiovascular devices associated with adverse incidents, not elsewhere classified
CPT/HCPCS: 36415; 71010; 71020; 80053; 83880; 84484; 85025; 85610; 85730; 87040; 87070; 93005; 93306; 94640; 94660; 94664; 96372; 96374; 96375; J0456; J0692; J0696; J1650; J1940; J2270; J3370; J7050